=== PATIENT | male | born 1950 | race Caucasian/White ===

== ENCOUNTER → 2016-07-05 | Outpatient (CLI) | payer MEDICARE, BC ==
[2016-07-05 15:55] LABS: Calcium 8.3 mg/dL (8.4-10.2); Potassium 4.8 mmol/L (3.5-5.1); Total Bilirubin 0.5 mg/dL (0.2-1.3); Total Protein 8.2 g/dL (6.3-8.2)
[2016-07-05 16:07] LABS: Basophils # (A) 0.1 k/uL (0-0.2); Basophils % (A) 1 %; CH 32.3; CHCM 33.6; Eosinophils # (A) 0.2 k/uL (0-0.7); Eosinophils % (A) 3 %; HCT 37.1 % (39.0-53.0); HDW 2.69; HGB 12.4 gm/dL (13.0-17.5); Luc # (Auto) 0.08; Luc % (Auto) 1; Lymphocytes # (A) 1.2 k/uL (1.0-4.8); Lymphocytes % (A) 17 %; MCH 32.2 pg (25.0-35.0); MCHC 33.3 g/dL (31.0-37.0); MCV 96.6 fL (80.0-100.0); Mean Platelet Volume 7.9; Monocytes # (A) 0.4 k/uL (0-1.0); Monocytes % (A) 5 %; Neutrophils # (A) 5.4 k/uL (1.3-7.7); Neutrophils % (A) 73 %; RBC 3.84 m/uL (4.30-5.90); RDW 13.7 % (11.5-15.5); WBC 7.3 k/uL (3.8-10.6); WBC (Perox) 7.48
[2016-07-05 23:17] LABS: Hemoglobin A1C 6.6 % (4.2-6.1)
== END | disposition home or self-care (01) ==
LOC: LABPAT 15:06
PROVIDERS: ATTEND Surgery Vascular Surgery
DX: E11.621 Type 2 diabetes mellitus with foot ulcer (principal); L97.509 Non-pressure chronic ulcer of other part of unspecified foot with unspecified severity; M14.679 Charcot's joint, unspecified ankle and foot
CPT/HCPCS: 80053; 83036; 84134; 85025

== ENCOUNTER → 2017-12-09 | Outpatient (CLI) | payer MEDICARE, BC ==
[2017-12-09 12:48] LABS: HCT 37.7 % (39.0-53.0); HGB 12.5 gm/dL (13.0-17.5); MCHC 33.2 g/dL (31.0-37.0); MCV 96.4 fL (80.0-100.0); Mean Platelet Volume 7.5; Platelet Count 137 k/uL (150-450); RBC 3.91 m/uL (4.30-5.90); RDW 14.9 % (11.5-15.5); WBC 7.4 k/uL (3.8-10.6)
[2017-12-09 13:02] LABS: Albumin 4.1 g/dL (3.5-5.0); Calcium 8.7 mg/dL (8.4-10.2); Total Bilirubin 0.8 mg/dL (0.2-1.3); Total Protein 8.4 g/dL (6.3-8.2)
[2017-12-09 21:51] LABS: Hemoglobin A1C 6.1 % (4.0-6.0)
== END | disposition home or self-care (01) ==
LOC: LABWHC1 12:21
PROVIDERS: ATTEND Surgery Vascular Surgery
DX: E13.621 Other specified diabetes mellitus with foot ulcer (principal)
CPT/HCPCS: 36415; 80053; 83036; 84134; 85027

== ENCOUNTER 2019-10-04 23:19 | Inpatient (IN) | payer MEDICARE, BC ==
[2019-10-04] MEDS ORDERED: EPINEPHrine 10 ML SYRINGE (0.1 MG/ML) ONE (23:38)
[2019-10-04 23:45] LABS: Basophils # (A) 0.1 k/uL (0-0.2); Basophils % (A) 1 %; Eosinophils # (A) 0.3 k/uL (0-0.7); Eosinophils % (A) 2 %; HCT 45.8 % (39.0-53.0); HGB 13.6 gm/dL (13.0-17.5); Hypochromasia Marked; Lymphocytes # (A) 5.9 k/uL (1.0-4.8); Lymphocytes % (A) 41 %; MCH 32.4 pg (25.0-35.0); MCHC 29.7 g/dL (31.0-37.0); MCV 109.3 fL (80.0-100.0); Macrocytosis Marked; Monocytes # (A) 0.5 k/uL (0-1.0); Monocytes % (A) 3 %; Neutrophils # (A) 7.1 k/uL (1.3-7.7); Neutrophils % (A) 50 %; Platelet Count 111 k/uL (150-450); RDW 14.3 % (11.5-15.5); WBC 14.3 k/uL (3.8-10.6)
[2019-10-04 23:50] LABS: Prothrombin Time 10.5 sec (9.0-12.0)
[2019-10-04 23:54] LABS: Albumin 3.8 g/dL (3.5-5.0); Calcium 9.3 mg/dL (8.4-10.2); Magnesium 2.7 mg/dL (1.6-2.3); Potassium 4.3 mmol/L (3.5-5.1); Total Bilirubin 0.7 mg/dL (0.2-1.3); Total Protein 7.5 g/dL (6.3-8.2)
[2019-10-04] MEDS ORDERED: INSULIN REGULAR 100 UNIT/ML VIAL SQ STA (23:57)
[2019-10-05 00:06] LABS: Anisocytosis (M) Present; Polychromasia Present
--- NOTE | 2019-10-05 00:08 | XR ---
EXAMINATION TYPE: XR chest 1V confirm line [facility] DATE OF EXAM: 10/05/2019 COMPARISON: NONE HISTORY: Intubated TECHNIQUE: FINDINGS: Endotracheal tube is 12 mm from the deanna. There is pulmonary interstitial and alveolar ed nathanael. Heart appears enlarged. I see no definite pleural effusion. IMPRESSION: Pulmonary edema. Endotracheal tube is low and could BE pulled back 2 to 3 cm.
[2019-10-05 00:21] LABS: ABG Base Excess -8.1 mmol/L; ABG HCO3 21 mmol/L (21-25); ABG PCO2 63 mmHg (35-45); ABG PO2 248 mmHg (83-108); ABG TCO2 23 mmol/L (19-24); Allen Test Performed? Yes
[2019-10-05 00:39] LABS: ABG PH 7.13 (7.35-7.45)
[2019-10-05] MEDS ORDERED: ACETAMINOPHEN SUPPOSITORY 650 MG SUPP RECTAL PRN (00:46)
[2019-10-05] MEDS ORDERED: MORPHINE SULFATE 2 MG/ML SYRINGE IV PRN (00:46)
[2019-10-05] MEDS ORDERED: NALOXONE 0.4 MG/ML 1 ML VIAL IV PRN (00:46)
[2019-10-05] MEDS ORDERED: HEPARIN SODIUM,PORCINE 5,000 UNIT/ML 1 ML VIAL IV PRN (00:51)
[2019-10-05] MEDS ORDERED: HEPARIN SODIUM,PORCINE 5,000 UNIT/ML 1 ML VIAL IV ONE (00:51)
--- NOTE | 2019-10-05 00:54 | ED ---
CPR HPI - General Chief Complaint: Cardiac Arrest/CPR Stated Complaint: Cardiac Arrest Time Seen by Provider: 10/04/19 23:54 Source: EMS Mode of arrival: EMS Limitations: physical limitation (Intubated, unresponsive) - History of Present Illness Initial Comments: This patient is a 69-year-old man with history of end-stage renal disease on hemodialysis, he is brought by ambulance after he had collapsed at home. History from the patient's daughter reveals that the patient had been in his usual state of health, he had had his dialysis session today. The patient called a family member because he felt like he was going to vomit. He then collapsed to the floor. Family helped him from the bed, and when they placed him on the bed he became unresponsive. Family called EMS and probably around 6 minutes later EMS arrived and started ACLS protocol. They did achieve ROSC. MD Complaint: collapsed during rest -: minute(s) Place: home Bystander CPR Performed: No AED Applied by Bystander/Supervisor Vegetable Farming: No Initial Findings in the Field: unresponsive ROSC in the Field: Yes Associated Injuries: No Treatments Prior to Arrival: intubation, other airway device, epinephrine mgs # - Related Data Allergies Allergy/AdvReac Type Severity Reaction Status Date / Time Unable to Assess Allergy Verified 10/04/19 23:56 Review of Systems ROS Statement: Those systems with pertinent positive or pertinent negative responses have been documented in the HPI. ROS Other: All systems not noted in ROS Statement are negative. Limitations: ROS unobtainable due to patients medical condition (Unresponsive) General Exam Limitations: no limitations General appearance: obese, other (Patient unresponsive) Head exam: Present: atraumatic, normocephalic Pupils: Present: other (Pupils are midrange and nonresponsive) ENT exam: Present: other (There is a Nick tube secured in the oropharynx. Patient does have some blood surrounding the mouth no evidence of active bleeding) Neck exam: Present: normal inspection, other (No evidence of step-off or deformity). Absent: tenderness Respiratory exam: Present: rhonchi, other (No spontaneous inspiratory effort. Auscultation during bagging reveals rhonchi) Cardiovascular Exam: Present: bradycardia (Heart rate in the mid 40s on arrival). Absent: systolic murmur, diastolic murmur, rubs, gallop GI/Abdominal exam: Present: soft. Absent: distended, tenderness, mass Extremities exam: Present: other (Right leg above-knee amputation, stasis ulcer left manzano) Neurological exam: Present: other (GCS is 3, patient unresponsive.). Absent: reflexes normal Skin exam: Present: dry, mottled. Absent: rash Course Vital Signs 10/04/19 10/05/19 10/05/19 23:23 00:25 00:30 Pulse Rate 73 86 82 Respiratory 18 18 18 Rate Blood Pressure 139/85 121/67 114/68 O2 Sat by Pulse 100 100 Oximetry 10/05/19 10/05/19 10/05/19 00:40 00:50 01:00 Pulse Rate 89 80 74 Respiratory 18 18 18 Rate Blood Pressure 109/65 94/50 85/52 O2 Sat by Pulse 97 99 100 Oximetry 10/05/19 10/05/19 01:10 01:55 Pulse Rate 75 86 Respiratory 18 18 Rate Blood Pressure 72/56 125/64 O2 Sat by Pulse 99 98 Oximetry - Reevaluation(s) Reevaluation #1: 10/05/19 01:02 After receiving the patient's EKG, I did transmit this to cardiology and discussed the case with them and at that point the patient does not appear to be a candidate for the lab head. Procedures - [place] Protocol (Time Out) Nurse: Claudy Hernandez - Central Line Placement Right Femoral Consent Obtained: emergent situation Patient Placed on Monitor/Pulse Ox: Yes Prep: mask, gown, gloves Central Line Prep: Chlorhexidine scrub Local Anesthesia Used: Lidocaine 1% Central Line Lumen Inserted: triple Bloods Obtained for Lab: Yes Central Line Position: good blood return, all ports aspirated, flushed, capped, sutured in place with nylon Dressing Applied: Tegaderm Patient Tolerated Procedure: well, no complications - Intubation Laryngoscope: fiber optic video scope ET Tube Size: 8 ET Tube Uncuffed: No Tube Placement Confirmation: visualized tube passing through cords, equal breath sounds bilaterally, no breath sounds over epigastrium, confirmation by capnometry Patient Tolerated Procedure: no complications Medical Decision Making - Medical Decision Making This patient is a 69-year-old man brought by ambulance for what appears to be cardiopulmonary arrest at home. There was return of spontaneous circulation after ACLS protocol. History and physical performed. Orders entered. On receiving the 12-lead ECG I discussed case with cardiology, and at this point patient does not appear to be lab head candidate. Case discussed with foreclosure field inspector, including the initial ABG. Given that the patient was becoming a little hypotensive, central venous catheter placed, see the note, without complications, and order Levophed. I discussed the patient's critical condition and the extremely grave prognosis with patient's daughter. - Lab Data Result diagrams: 10/04/19 23:24 10/04/19 23:24 Lab Results 10/04/19 10/04/19 10/04/19 Range/Units 23:24 23:24 23:24 WBC 14.3 H (3.8-10.6) k/uL RBC 4.20 L (4.30-5.90) m/uL Hgb 13.6 (13.0-17.5) gm/dL Hct 45.8 (39.0-53.0) % MCV 109.3 H (80.0-100.0) fL MCH 32.4 (25.0-35.0) pg MCHC 29.7 L (31.0-37.0) g/dL RDW 14.3 (11.5-15.5) % Plt Count 111 L (150-450) k/uL Neutrophils % 50 % Lymphocytes % 41 % Monocytes % 3 % Eosinophils % 2 % Basophils % 1 % Neutrophils # 7.1 (1.3-7.7) k/uL Lymphocytes # 5.9 H (1.0-4.8) k/uL Monocytes # 0.5 (0-1.0) k/uL Eosinophils # 0.3 (0-0.7) k/uL Basophils # 0.1 (0-0.2) k/uL Manual Slide Review Performed Polychromasia Present Hypochromasia Marked Anisocytosis (manual) Present Macrocytosis Marked A PT 10.5 (9.0-12.0) sec INR 1.0 (<1.2) APTT 23.0 (22.0-30.0) sec Sample Site ABG pH (7.35-7.45) ABG pCO2 (35-45) mmHg ABG pO2 (83-108) mmHg ABG HCO3 (21-25) mmol/L ABG Total CO2 (19-24) mmol/L ABG O2 Saturation (94-97) % ABG Base Excess mmol/L Elvis Test FiO2 % Sodium 141 (137-145) mmol/L Potassium 4.3 (3.5-5.1) mmol/L Chloride 98 (98-107) mmol/L Carbon Dioxide 15 L (22-30) mmol/L Anion Gap 28 mmol/L BUN 28 H (9-20) mg/dL Creatinine 4.60 H (0.66-1.25) mg/dL Est GFR (CKD-EPI)AfAm 10 (>60 ml/min/1.73 sqM) Est GFR (CKD-EPI)NonAf 9 (>60 ml/min/1.73 sqM) Glucose 403 H (74-99) mg/dL Calcium 9.3 (8.4-10.2) mg/dL Magnesium 2.7 H (1.6-2.3) mg/dL Total Bilirubin 0.7 (0.2-1.3) mg/dL AST 29 (17-59) U/L ALT 22 (4-49) U/L Alkaline Phosphatase 146 H (38-126) U/L Troponin I (0.000-0.034) ng/mL Total Protein 7.5 (6.3-8.2) g/dL Albumin 3.8 (3.5-5.0) g/dL Coronavirus (PCR) (Not Detectd) 10/04/19 10/05/19 10/05/19 Range/Units 23:24 00:19 00:20 WBC (3.8-10.6) k/uL RBC (4.30-5.90) m/uL Hgb (13.0-17.5) gm/dL Hct (39.0-53.0) % MCV (80.0-100.0) fL MCH (25.0-35.0) pg MCHC (31.0-37.0) g/dL RDW (11.5-15.5) % Plt Count (150-450) k/uL Neutrophils % % Lymphocytes % % Monocytes % % Eosinophils % % Basophils % % Neutrophils # (1.3-7.7) k/uL Lymphocytes # (1.0-4.8) k/uL Monocytes # (0-1.0) k/uL Eosinophils # (0-0.7) k/uL Basophils # (0-0.2) k/uL Manual Slide Review Polychromasia Hypochromasia Anisocytosis (manual) Macrocytosis PT (9.0-12.0) sec INR (<1.2) APTT (22.0-30.0) sec Sample Site lbrac ABG pH 7.13 L* (7.35-7.45) ABG pCO2 63 H (35-45) mmHg ABG pO2 248 H (83-108) mmHg ABG HCO3 21 (21-25) mmol/L ABG Total CO2 23 (19-24) mmol/L ABG O2 Saturation 97.0 (94-97) % ABG Base Excess -8.1 mmol/L Elvis Test Yes FiO2 100 % Sodium (137-145) mmol/L Potassium (3.5-5.1) mmol/L Chloride (98-107) mmol/L Carbon Dioxide (22-30) mmol/L Anion Gap mmol/L BUN (9-20) mg/dL Creatinine (0.66-1.25) mg/dL Est GFR (CKD-EPI)AfAm (>60 ml/min/1.73 sqM) Est GFR (CKD-EPI)NonAf (>60 ml/min/1.73 sqM) Glucose (74-99) mg/dL Calcium (8.4-10.2) mg/dL Magnesium (1.6-2.3) mg/dL Total Bilirubin (0.2-1.3) mg/dL AST (17-59) U/L ALT (4-49) U/L Alkaline Phosphatase (38-126) U/L Troponin I 0.037 H* (0.000-0.034) ng/mL Total Protein (6.3-8.2) g/dL Albumin (3.5-5.0) g/dL Coronavirus (PCR) Not Detected (Not Detectd) - EKG Data -: EKG Interpreted by Me EKG shows normal: axis (Appears to be right superior axis deviation.), intervals (Prolonged QT interval.), ST-T waves (There is mild ST elevation in lead V1, depressions laterally and V2 through 6, concerning for possible ischemia.) Rate: normal (Rate 89 bpm) Interpretation: other (Rhythm appears to be atrial fibrillation with rate 89 b pm. ) Critical Care Time Critical Care Time: Yes (45 minutes) Disposition Clinical Impression: Cardiac arrest Disposition: ADMITTED IP TO THIS HOSP Condition: Critical Is patient prescribed a controlled substance at d/c from ED?: No
[2019-10-05] MEDS ORDERED: HEPARIN SOD,PORK IN 0.45% NACL 25,000 UNIT in 0.45% NACL 1 250ML.BAG IV SCH (01:00)
[2019-10-05] MEDS: SODIUM CHLORIDE 0.9% 1,000 ML IV SCH ×3 (01:12→20:29)
[2019-10-05] MEDS: NOREPINEPHRINE 32 MG in SODIUM CHLORIDE 0.9% 218 ML IV SCH (01:37)
[2019-10-05] MEDS ORDERED: PROPOFOL 1,000 MG in EMPTY BAG 1 BAG IV SCH (02:30)
[2019-10-05] MEDS ORDERED: SODIUM CHLORIDE 0.9% 1,000 ML IV ONE (03:22)
[2019-10-05 04:48] LABS: Basophils # (A) 0.1 k/uL (0-0.2); Basophils % (A) 0 %; Eosinophils # (A) 0.1 k/uL (0-0.7); Eosinophils % (A) 0 %; HCT 48.5 % (39.0-53.0); Hypochromasia Marked; Lymphocytes # (A) 1.2 k/uL (1.0-4.8); Lymphocytes % (A) 6 %; MCH 32.4 pg (25.0-35.0); MCHC 30.9 g/dL (31.0-37.0); MCV 104.8 fL (80.0-100.0); Macrocytosis Moderate; Mean Platelet Volume 9.3; Monocytes # (A) 1.1 k/uL (0-1.0); Monocytes % (A) 5 %; Neutrophils # (A) 19.1 k/uL (1.3-7.7); Neutrophils % (A) 88 %; Platelet Count 134 k/uL (150-450); RBC 4.62 m/uL (4.30-5.90); RDW 14.3 % (11.5-15.5); WBC 21.8 k/uL (3.8-10.6)
[2019-10-05 05:04] LABS: Calcium 9.5 mg/dL (8.4-10.2); Potassium 5.4 mmol/L (3.5-5.1)
[2019-10-05] MEDS ORDERED: INSULIN ASPART (NovoLOG) 100 UNIT/ML VIAL SQ SCH (06:00)
[2019-10-05 07:23] LABS: ABG Base Excess -4.5 mmol/L; ABG HCO3 21 mmol/L (21-25); ABG Oxygen Saturation 93.8 % (94-97); ABG PCO2 41 mmHg (35-45); ABG PH 7.33 (7.35-7.45); ABG PO2 96 mmHg (83-108); ABG TCO2 23 mmol/L (19-24); Allen Test Performed? Yes
[2019-10-05] MEDS ORDERED: ARTIFICIAL TEARS OINTMENT 3.5 GM TUBE BOTH EYES PRN (08:00)
[2019-10-05 08:04] LABS: Glucose,Whole Blood 343 mg/dL (75-99)
[2019-10-05 08:04] LABS: Glucose,Whole Blood 336 mg/dL (75-99)
[2019-10-05] MEDS ORDERED: PIPERACILLIN-TAZOBACTAM 3.375 GM in SODIUM CHLORIDE 0.9% 100 ML IVPB SCH (08:15)
[2019-10-05] MEDS ORDERED: VANCOMYCIN IV PER PHARMACY 1 EACH MISC MISCELLANE PRN (08:23)
[2019-10-05] MEDS ORDERED: INSULIN REGULAR BOLUS (FROM DRIP BAG) IV PRN (08:25)
[2019-10-05] MEDS ORDERED: FAMOTIDINE 20 MG/2 ML VIAL IV SCH (09:00)
[2019-10-05] MEDS ORDERED: VANCOMYCIN 2,000 MG in SODIUM CHLORIDE 0.9% 500 ML 500 ML IVPB ONE (09:00)
--- NOTE | 2019-10-05 09:31 | XR ---
EXAMINATION TYPE: XR chest 1V DATE OF EXAM: 10/05/2019 COMPARISON: 10/05/2019 HISTORY: Nasogastric tube placement TECHNIQUE: Single frontal view of the chest is obtained. FINDINGS: Nasogastric tube has been placed terminating off the distal [id number]. Endotracheal tu be appears similar in position terminating near the aortic arch approximately 4.5 cm in the deanna. S imilar-appearing bilateral pleural effusions and associated bibasilar airspace disease with moderate pulmonary vascular congestion and interstitial edema. Cardiomediastinal silhouette is enlarged. IMPRESSION: Enteric tube courses off of the distal [id number], therefore likely appropriately vinicio ingris although the distal tip is not visualized. Endotracheal tube is satisfactory and stable position. Redemonstration of sequela of fluid overload as stated on the prior earlier the same date.
[2019-10-05 09:41] LABS: Glucose,Whole Blood 313 mg/dL (75-99)
[2019-10-05] MEDS: INSULIN REGULAR 100 UNIT in SODIUM CHLORIDE 0.9% 100 ML IV SCH ×2 (09:42→20:27)
--- NOTE | 2019-10-05 09:43 | XR ---
EXAMINATION TYPE: XR chest 1V portable DATE OF EXAM: 10/05/2019 COMPARISON: 10/05/2019 HISTORY: Endotracheal tube placement. Ventilatory dependent respiratory failure. TECHNIQUE: Single frontal view of the chest is obtained. FINDINGS: Increasing small to moderate right pleural effusion and diffuse interstitial moderate pulm onary edema. Right mid and upper lung opacity are similar. Endotracheal tube remains in place approxi mately 4.6 cm from the deanna. Trace left pleural effusion is seen. Cardiomediastinal silhouette is e nlarged and rotated. Enteric tube has been removed. IMPRESSION: 1. Removal of the enteric tube. 2. Worsening small to moderate right pleural effusion and sequela of fluid overload with interstitial edema.
[2019-10-05] MEDS: CHLORHEXIDINE GLUCONATE 15 ML CUP MUCOUS MEM SCH ×2 (10:05→21:05)
[2019-10-05] MEDS: PIPERACILLIN-TAZOBACTAM 3.375 GM in SODIUM CHLORIDE 0.9% 100 ML IVPB SCH ×2 (10:06→21:05)
[2019-10-05 10:18] LABS: Glucose,Whole Blood 316 mg/dL (75-99)
[2019-10-05] MEDS ORDERED: ACETAMINOPHEN TAB 325 MG TAB PO PRN (10:24)
[2019-10-05 11:13] LABS: Glucose,Whole Blood 314 mg/dL (75-99)
--- NOTE | 2019-10-05 11:41 | P.HPIM ---
History of Present Illness 69-year-old male with end-stage renal disease on hemodialysis collapsed at home and patient was brought into ER after he was resuscitated for about 6 minutes patient had pulseless electrical activity. Patient was subsequently intubated in the ER and patient airway although was maintained during transportation. Patient doesn't have any fevers patient doesn't make much urine hemodialysis dependent. Patient chest x-ray did not show any pneumonic process but did show pulmonary edema. Patient has both hypercapnic and hypoxic respiratory failure. Patient has gag reflex that is SENT pupils are not reacting to light and neurology will evaluate the patient for anoxic brain injury. Patient has significant lactic acidosis with mildly elevated troponin and patient has a decubitus ulcer which can be infected. Review of Systems Unable to obtain Past Medical History Past Medical History: Diabetes Mellitus, Hyperlipidemia, Renal Disease, Vascular Disorder Additional Past Medical History / Comment(s): Seasonal allergies, peripheral ne uropathy, peripheral vascular disease, dialysis tuesday, tue, tuesday, wound R foot History of Any Multi-Drug Resistant Organisms: None Reported Date of last positivie culture/infection: 02/19/2014 MDRO Source:: Left Foot Past Surgical History: Orthopedic Surgery Additional Past Surgical History / Comment(s): Amputation 4th toe left foot, dialysis port to left chest removed, fistula to rt arm. Amputation great toe and 2nd toe rt foot. 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 He has 2 daughters are both diabetic. Medications and Allergies Home Medications Medication Instructions Recorded Confirmed Type Calcium Acetate [PhosLo] 2,001 mg PO AC-BID 06/18/14 10/05/19 History Insulin Detemir (Levemir) [Levemir] 50 unit SQ PC-SUPPER 06/18/14 10/05/19 History Midodrine [ProAmatine] 5 mg PO MOWEFR PRN 06/26/14 10/05/19 History Acetaminophen [Tylenol Arthritis] 650 mg PO Q8H PRN 10/05/19 10/05/19 History Albuterol Inhaler [Ventolin Hfa 2 puff INHALATION Q6H PRN 10/05/19 10/05/19 History Inhaler] Apixaban [Eliquis] 2.5 mg PO BID 10/05/19 10/05/19 History Furosemide [Lasix] 120 mg PO BID 10/05/19 10/05/19 History Lidocaine-Prilocaine Cream [Emla 1 applic TOPICAL MOWEFR PRN 10/05/19 10/05/19 History Cream 2.5%/2.5%] Pantoprazole [Protonix] 40 mg PO DAILY 10/05/19 10/05/19 History Simvastatin [Zocor] 20 mg PO HS 10/05/19 10/05/19 History Allergies Allergy/AdvReac Type Severity Reaction Status Date / Time No Known Allergies Allergy Verified 10/05/19 09:28 Physical Exam Vitals: Vital Signs Temp Pulse Pulse Pulse Resp BP BP 10/05/19 10:45 76/36 10/05/19 10:30 80/39 10/05/19 10:15 104/52 10/05/19 10:00 70 24 10/05/19 09:45 113/49 10/05/19 09:30 116/62 10/05/19 09:15 119/57 10/05/19 09:00 71 24 117/55 10/05/19 08:30 110/59 10/05/19 08:15 112/60 10/05/19 08:00 98.1 F 72 24 135/53 10/05/19 06:00 72 24 125/59 10/05/19 05:00 75 24 120/61 10/05/19 04:00 97.7 F 80 24 126/64 10/05/19 03:00 82 24 131/60 10/05/19 02:30 96.6 F L 76 22 132/61 10/05/19 02:00 97.6 F 78 24 107/48 10/05/19 01:55 86 18 125/64 10/05/19 01:10 75 18 72/56 10/05/19 01:00 74 18 85/52 10/05/19 00:50 80 18 94/50 10/05/19 00:40 89 18 109/65 10/05/19 00:30 82 18 114/68 10/05/19 00:25 86 18 121/67 10/05/19 00:15 98 18 109/58 10/05/19 00:00 96 18 116/66 10/04/19 23:23 73 18 139/85 Pulse Ox 10/05/19 10:45 10/05/19 10:30 10/05/19 10:15 10/05/19 10:00 95 10/05/19 09:45 10/05/19 09:30 10/05/19 09:15 10/05/19 09:00 95 10/05/19 08:30 10/05/19 08:15 10/05/19 08:00 96 10/05/19 06:00 96 10/05/19 05:00 96 10/05/19 04:00 96 10/05/19 03:00 96 10/05/19 02:30 10/05/19 02:00 96 10/05/19 01:55 98 10/05/19 01:10 99 10/05/19 01:00 100 10/05/19 00:50 99 10/05/19 00:40 97 10/05/19 00:30 100 10/05/19 00:25 100 10/05/19 00:15 100 10/05/19 00:00 100 10/04/19 23:23 Intake and Output 10/04/19 10/05/19 10/05/19 22:59 06:59 14:59 Intake Total 1650 600.834 Output Total 0 0 Balance 1650 600.834 Intake: IV 1650 485 NS 1L bolus 1000 Sodium Chloride 0.9% 1, 650 485 000 ml @ 75 mls/hr IV . [id number] [facility] Rx#:[id number] Intake, IV Titration 115.834 Amount Heparin Sod,Pork in 0.45% 71.819 NaCl 25,000 unit In 0.45 % NaCl 1 250ml.bag @ 7.11 UNITS/KG/HR 9.998 mls/hr IV .Q24H [facility] Rx#: [id number] Insulin Regular 100 unit 16.757 In Sodium Chloride 0.9% 100 ml @ Per Protocol IV .Q0M [facility] Rx#:[id number] Norepinephrine 32 mg In 27.258 Sodium Chloride 0.9% 218 ml @ 0.05 MCG/KG/MIN 3. 296 mls/hr IV .Q24H [facility] Rx#:[id number] Output: Urine 0 0 Other: Voiding Method Indwelling Catheter Indwelling Catheter Weight 140.614 kg PHYSICAL EXAMINATION: GENERAL: Obese intubated HEENT: Pupils are round and equally reacting to light. EOMI. No scleral icterus. No conjunctival pallor. Normocephalic, atraumatic. No pharyngeal erythema. No thyromegaly. CARDIOVASCULAR: S1 and S2 present. No murmurs, rubs, or gallops. PULMONARY: Chest is clear to auscultation, no wheezing or crackles. ABDOMEN: Soft, nontender, nondistended, normoactive bowel sounds. No palpable organomegaly. MUSCULOSKELETAL: No joint swelling or deformity. EXTREMITIES: No cyanosis, clubbing, or pedal edema. NEUROLOGICAL: Absent gag reflex, pupillary reflex corneal and conjunctival reflexes. SKIN: Decubitus ulcers please refer to nursing documentation for staging appears to be infected Results CBC & Chem 7: 10/05/19 04:19 10/05/19 04:19 Labs: Abnormal Lab Results - Last 24 Hours (Table) 10/04/19 10/04/19 10/04/19 Range/Units 23:24 23:24 23:24 WBC 14.3 H (3.8-10.6) k/uL RBC 4.20 L (4.30-5.90) m/uL MCV 109.3 H (80.0-100.0) fL MCHC 29.7 L (31.0-37.0) g/dL Plt Count 111 L (150-450) k/uL Neutrophils # (1.3-7.7) k/uL Lymphocytes # 5.9 H (1.0-4.8) k/uL Monocytes # (0-1.0) k/uL Macrocytosis Marked A APTT (22.0-30.0) sec ABG pH (7.35-7.45) ABG pCO2 (35-45) mmHg ABG pO2 (83-108) mmHg ABG O2 Saturation (94-97) % Potassium (3.5-5.1) mmol/L Carbon Dioxide 15 L (22-30) mmol/L BUN 28 H (9-20) mg/dL Creatinine 4.60 H (0.66-1.25) mg/dL Glucose 403 H (74-99) mg/dL POC Glucose (mg/dL) (75-99) mg/dL Plasma Lactic Acid Santiago (0.7-2.0) mmol/L Magnesium 2.7 H (1.6-2.3) mg/dL Alkaline Phosphatase 146 H (38-126) U/L Troponin I 0.037 H* (0.000-0.034) ng/mL 10/05/19 10/05/19 10/05/19 Range/Units 00:19 01:25 02:18 WBC (3.8-10.6) k/uL RBC (4.30-5.90) m/uL MCV (80.0-100.0) fL MCHC (31.0-37.0) g/dL Plt Count (150-450) k/uL Neutrophils # (1.3-7.7) k/uL Lymphocytes # (1.0-4.8) k/uL Monocytes # (0-1.0) k/uL Macrocytosis APTT (22.0-30.0) sec ABG pH 7.13 L* (7.35-7.45) ABG pCO2 63 H (35-45) mmHg ABG pO2 248 H (83-108) mmHg ABG O2 Saturation (94-97) % Potassium (3.5-5.1) mmol/L Carbon Dioxide (22-30) mmol/L BUN (9-20) mg/dL Creatinine (0.66-1.25) mg/dL Glucose (74-99) mg/dL POC Glucose (mg/dL) 336 H (75-99) mg/dL Plasma Lactic Acid Santiago 9.0 H* (0.7-2.0) mmol/L Magnesium (1.6-2.3) mg/dL Alkaline Phosphatase (38-126) U/L Troponin I (0.000-0.034) ng/mL 10/05/19 10/05/19 10/05/19 Range/Units 04:19 04:19 04:19 WBC 21.8 H (3.8-10.6) k/uL RBC (4.30-5.90) m/uL MCV 104.8 H (80.0-100.0) fL MCHC 30.9 L (31.0-37.0) g/dL Plt Count 134 L (150-450) k/uL Neutrophils # 19.1 H (1.3-7.7) k/uL Lymphocytes # (1.0-4.8) k/uL Monocytes # 1.1 H (0-1.0) k/uL Macrocytosis APTT 36.3 H (22.0-30.0) sec ABG pH (7.35-7.45) ABG pCO2 (35-45) mmHg ABG pO2 (83-108) mmHg ABG O2 Saturation (94-97) % Potassium 5.4 H (3.5-5.1) mmol/L Carbon Dioxide 20 L (22-30) mmol/L BUN 37 H (9-20) mg/dL Creatinine 4.89 H (0.66-1.25) mg/dL Glucose 343 H (74-99) mg/dL POC Glucose (mg/dL) (75-99) mg/dL Plasma Lactic Acid Santiago (0.7-2.0) mmol/L Magnesium (1.6-2.3) mg/dL Alkaline Phosphatase (38-126) U/L Troponin I (0.000-0.034) ng/mL 10/05/19 10/05/19 10/05/19 Range/Units 06:04 06:36 07:06 WBC (3.8-10.6) k/uL RBC (4.30-5.90) m/uL MCV (80.0-100.0) fL MCHC (31.0-37.0) g/dL Plt Count (150-450) k/uL Neutrophils # (1.3-7.7) k/uL Lymphocytes # (1.0-4.8) k/uL Monocytes # (0-1.0) k/uL Macrocytosis APTT (22.0-30.0) sec ABG pH 7.33 L (7.35-7.45) ABG pCO2 (35-45) mmHg ABG pO2 (83-108) mmHg ABG O2 Saturation 93.8 L (94-97) % Potassium (3.5-5.1) mmol/L Carbon Dioxide (22-30) mmol/L BUN (9-20) mg/dL Creatinine (0.66-1.25) mg/dL Glucose (74-99) mg/dL POC Glucose (mg/dL) 343 H (75-99) mg/dL Plasma Lactic Acid Santiago 6.9 H* (0.7-2.0) mmol/L Magnesium (1.6-2.3) mg/dL Alkaline Phosphatase (38-126) U/L Troponin I (0.000-0.034) ng/mL 10/05/19 10/05/19 10/05/19 Range/Units 09:40 09:54 10:16 WBC (3.8-10.6) k/uL RBC (4.30-5.90) m/uL MCV (80.0-100.0) fL MCHC (31.0-37.0) g/dL Plt Count (150-450) k/uL Neutrophils # (1.3-7.7) k/uL Lymphocytes # (1.0-4.8) k/uL Monocytes # (0-1.0) k/uL Macrocytosis APTT (22.0-30.0) sec ABG pH (7.35-7.45) ABG pCO2 (35-45) mmHg ABG pO2 (83-108) mmHg ABG O2 Saturation (94-97) % Potassium (3.5-5.1) mmol/L Carbon Dioxide (22-30) mmol/L BUN (9-20) mg/dL Creatinine (0.66-1.25) mg/dL Glucose (74-99) mg/dL POC Glucose (mg/dL) 313 H 316 H (75-99) mg/dL Plasma Lactic Acid Santiago 5.6 H* (0.7-2.0) mmol/L Magnesium (1.6-2.3) mg/dL Alkaline Phosphatase (38-126) U/L Troponin I (0.000-0.034) ng/mL 10/05/19 Range/Units 11:12 WBC (3.8-10.6) k/uL RBC (4.30-5.90) m/uL MCV (80.0-100.0) fL MCHC (31.0-37.0) g/dL Plt Count (150-450) k/uL Neutrophils # (1.3-7.7) k/uL Lymphocytes # (1.0-4.8) k/uL Monocytes # (0-1.0) k/uL Macrocytosis APTT (22.0-30.0) sec ABG pH (7.35-7.45) ABG pCO2 (35-45) mmHg ABG pO2 (83-108) mmHg ABG O2 Saturation (94-97) % Potassium (3.5-5.1) mmol/L Carbon Dioxide (22-30) mmol/L BUN (9-20) mg/dL Creatinine (0.66-1.25) mg/dL Glucose (74-99) mg/dL POC Glucose (mg/dL) 314 H (75-99) mg/dL Plasma Lactic Acid Santiago (0.7-2.0) mmol/L Magnesium (1.6-2.3) mg/dL Alkaline Phosphatase (38-126) U/L Troponin I (0.000-0.034) ng/mL Microbiology - Last 24 Hours (Table) 10/05/19 02:52 Sputum Culture - Preliminary Sputum Thrombosis Risk Factor Assmnt - Choose All That Apply Each Factor Represents 1 point: Obesity (BMI >25) Other Risk Factors: Yes Each Risk Factor Represents 2 Points: Age 61-74 years, Central venous access, Patient confined to bed Thrombosis Risk Factor Assessment Total Risk Factor Score: 7 Thrombosis Risk Factor Assessment Level: High Risk Assessment and Plan Plan: Acute the hypoxic and hypercapnic respiratory failure status post cardiac pulmonary arrest acute hypoxic respiratory failure may be related to pulmonary edema patient is Tuesday hemodialysis nephrology will evaluated the patient and decide on hemodialysis, hypercapnic respiratory failure may be related to COPD exacerbation unknown whether patient ever smoked. Can be related to cardiology pulmonary arrest, patient is presently ventilator dep endent -Sepsis and septic shock, patient is receiving IV fluids and is also on norepinephrine for maintenance of blood pressure wound cultures were obtained wound may be the source of infection no other sources clearly evident at this time patient is on broad-spectrum antibiotics and azithromycin and Zosyn and blood cultures will be obtained as well as infectious disease will evaluate the patient extended-leukocytosis due to assessment #2 -Possible significant anoxic brain injury neurology will evaluate the patient patient may need any imaging his prognosis is extremely poor patient Taniya being terminal wean and comfort care will wait for neurology recommendations regarding extent of his blood anoxic brain injury. -Cardio pulmonary arrest may be secondary to sepsis or pulmonary edema -End-stage renal disease hemodialysis dependent -Hyperkalemia secondary to renal failure -Type 2 diabetes mellitus uncontrolled blood sugars patient is on IV insulin drip at this time. I to lactic acidosis secondary to sepsis and cardio pulmonary arrest and decreased organ perfusion and multiorgan dysfunction -Troponin elevation probably secondary to cardio pulmonary arrest. Urology will evaluate the patient patient is having bleeding from the oral cavity because of which patient is not on anti-correlation patient usually takes Eliquis for atrial fibrillation -Hyperlipidemia Have intravascular disease -Diabetic peripheral neuropathy -Diabetic nephropathy -History of atrial fibrillation presently rate controlled
--- NOTE | 2019-10-05 11:42 | P.NPCON ---
History of Present Illness - Reason for Consult end stage renal disease - History of Present Illness Reason for consultation: End-stage renal disease History of present illness: Patient is a 47-year-old male seen in renal consultation for end-stage renal disease. He is maintained on hemodialysis on Tuesday schedule. Patient was found to be unresponsive at home. EMS was called. CPR was performed for about 20 minutes with response to circulation. However he again had a cardiac arrest and was coded for another 5 minutes or so in the ER. Patient's down time is estimated to be about 35-40 minutes. He is currently intubated and sedated. He is on Levophed. He is also receiving IV fluids. Chest x-ray suggestive of fluid overload. Patient tends to be chronically fluid overloaded and typically tolerates 4 L of ultrafiltration with each dialysis treatment. He is long-standing history of diabetes mellitus. No fever. Coronavirus testing was negative. Vital signs are stable. Currently on Levophed. General: The patient appeared well nourished and normally developed. HEENT: Intubated. LUNGS: Lungs are clear to auscultation and percussion. Breath sounds decreased. HEART: Rate and Rhythm are regular. First and second heart sounds normal. No murmurs, rubs or gallops. ABDOMEN: Soft. Obese. EXTREMITITES: Chronic changes noted. BKA noted. Past Medical History Past Medical History: Diabetes Mellitus, Hyperlipidemia, Renal Disease, Vascular Disorder Additional Past Medical History / Comment(s): Seasonal allergies, peripheral neuropathy, peripheral vascular disease, dialysis tuesday, tue, tuesday, wound R foot History of Any Multi-Drug Resistant Organisms: None Reported Date of last positivie culture/infection: 02/19/2014 MDRO Source:: Left Foot Past Surgical History: Orthopedic Surgery Additional Past Surgical History / Comment(s): Amputation 4th toe left foot, dialysis port to left chest removed, fistula to rt arm. Amputation great toe and 2nd toe rt foot. 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 He has 2 daughters are both diabetic. Medications and Allergies Home Medications Medication Instructions Recorded Confirmed Type Calcium Acetate [PhosLo] 2,001 mg PO AC-BID 06/18/14 10/05/19 History Insulin Detemir (Levemir) [Levemir] 50 unit SQ PC-SUPPER 06/18/14 10/05/19 History Midodrine [ProAmatine] 5 mg PO MOWEFR PRN 06/26/14 10/05/19 History Acetaminophen [Tylenol Arthritis] 650 mg PO Q8H PRN 10/05/19 10/05/19 History Albuterol Inhaler [Ventolin Hfa 2 puff INHALATION Q6H PRN 10/05/19 10/05/19 History Inhaler] Apixaban [Eliquis] 2.5 mg PO BID 10/05/19 10/05/19 History Furosemide [Lasix] 120 mg PO BID 10/05/19 10/05/19 History Lidocaine-Prilocaine Cream [Emla 1 applic TOPICAL MOWEFR PRN 10/05/19 10/05/19 History Cream 2.5%/2.5%] Pantoprazole [Protonix] 40 mg PO DAILY 10/05/19 10/05/19 History Simvastatin [Zocor] 20 mg PO HS 10/05/19 10/05/19 History Allergies Allergy/AdvReac Type Severity Reaction Status Date / Time No Known Allergies Allergy Verified 10/05/19 09:28 Physical Exam Vitals: Vital Signs Temp Pulse Pulse Pulse Resp BP BP 10/05/19 10:45 76/36 10/05/19 10:30 80/39 10/05/19 10:15 104/52 10/05/19 10:00 70 24 10/05/19 09:45 113/49 10/05/19 09:30 116/62 10/05/19 09:15 119/57 10/05/19 09:00 71 24 117/55 10/05/19 08:30 110/59 10/05/19 08:15 112/60 10/05/19 08:00 98.1 F 72 24 135/53 10/05/19 06:00 72 24 125/59 10/05/19 05:00 75 24 120/61 10/05/19 04:00 97.7 F 80 24 126/64 10/05/19 03:00 82 24 131/60 10/05/19 02:30 96.6 F L 76 22 132/61 10/05/19 02:00 97.6 F 78 24 107/48 10/05/19 01:55 86 18 125/64 10/05/19 01:10 75 18 72/56 10/05/19 01:00 74 18 85/52 10/05/19 00:50 80 18 94/50 10/05/19 00:40 89 18 109/65 10/05/19 00:30 82 18 114/68 10/05/19 00:25 86 18 121/67 10/05/19 00:15 98 18 109/58 10/05/19 00:00 96 18 116/66 10/04/19 23:23 73 18 139/85 Pulse Ox 10/05/19 10:45 10/05/19 10:30 10/05/19 10:15 10/05/19 10:00 95 10/05/19 09:45 10/05/19 09:30 10/05/19 09:15 10/05/19 09:00 95 10/05/19 08:30 10/05/19 08:15 10/05/19 08:00 96 10/05/19 06:00 96 10/05/19 05:00 96 10/05/19 04:00 96 10/05/19 03:00 96 10/05/19 02:30 10/05/19 02:00 96 10/05/19 01:55 98 10/05/19 01:10 99 10/05/19 01:00 100 10/05/19 00:50 99 10/05/19 00:40 97 10/05/19 00:30 100 10/05/19 00:25 100 10/05/19 00:15 100 10/05/19 00:00 100 10/04/19 23:23 Intake and Output 10/04/19 10/05/19 10/05/19 22:59 06:59 14:59 Intake Total 1650 600.834 Output Total 0 0 Balance 1650 600.834 Intake: IV 1650 485 NS 1L bolus 1000 Sodium Chloride 0.9% 1, 650 485 000 ml @ 75 mls/hr IV . [id number] [facility] Rx#:[id number] Intake, IV Titration 115.834 Amount Heparin Sod,Pork in 0.45% 71.819 NaCl 25,000 unit In 0.45 % NaCl 1 250ml.bag @ 7.11 UNITS/KG/HR 9.998 mls/hr IV .Q24H [facility] Rx#: [id number] Insulin Regular 100 unit 16.757 In Sodium Chloride 0.9% 100 ml @ Per Protocol IV .Q0M [facility] Rx#:[id number] Norepinephrine 32 mg In 27.258 Sodium Chloride 0.9% 218 ml @ 0.05 MCG/KG/MIN 3. 296 mls/hr IV .Q24H [facility] Rx#:[id number] Output: Urine 0 0 Other: Voiding Method Indwelling Catheter Indwelling Catheter Weight 140.614 kg Results - Lab Results Most recent lab results ABG pH 7.33 (7.35-7.45) L 10/05/19 07:06 ABG pCO2 41 mmHg (35-45) 10/05/19 07:06 ABG pO2 96 mmHg (83-108) 10/05/19 07:06 ABG HCO3 21 mmol/L (21-25) 10/05/19 07:06 ABG O2 Saturation 93.8 % (94-97) L 10/05/19 07:06 Calcium 9.5 mg/dL (8.4-10.2) 10/05/19 04:19 Magnesium 2.7 mg/dL (1.6-2.3) H 10/04/19 23:24 10/05/19 04:19 10/05/19 04:19 Assessment and Plan Plan: Assessment: 1. End-stage renal disease maintained on hemodialysis on Tuesday schedule. 2. Status post cardiac arrest with nearly 35-40 minutes downtime. 3. Concern for anoxic brain injury. 4. Volume overload. 5. Chronic kidney disease mineral bone disease maintained on PhosLo. 6. Insulin-dependent diabetes mellitus. 7. Hypotension maintained on Levophed. Plan: Hep-Lock IV fluids. Hemodialysis today with goal 2-3 L ultrafiltration. Will do SLED due to being on vasopressors. Wean vasopressors and FiO2. Overall prognosis guarded. Thank you for the consultation. I will continue to follow the patient with you during his hospital stay.
--- NOTE | 2019-10-05 11:57 | P.CRDCN ---
<Becky Pina - Last Filed: 10/05/19 11:48> History of Present Illness History of present illness: This is Becky Pina PA-C scribing on behalf of Dr. Espinosa The patient was interviewed and examined by Dr. Espinosa ER note reviewed HPI Patient is a 69-year-old male with history of end-stage renal disease on dialysis, diabetes, PAD who presented to the emergency department after a cardiac arrest. Carding to the emergency department as well, he had his dialysis session and then called a family member over because he was nauseated. He then collapsed on the floor and became unresponsive. The family called EMS. ACLS was started but there was no shockable rhythm, but ROSC was acheived. Upon arrival to the emergency department the patient was intubated. EKG showed atrial fibrillation with ST depressions in the lateral leads. Chest x-ray showing pulmonary edema. He has been admitted to the ICU. ROS: Unable to obtain EXAMINATION: Patient is afebrile, pulse in the 70s, respirations 24, blood pressure 76/36, oxygen saturation 95% on mechanical ventilation Dr. Espinosa examined the patient in the ICU Patient sedated and intubated Air entry equal bilaterally Heart sounds are soft REVIEW OF LABS, ECG & MEDICAL DATA WBC 21.8, hemoglobin 15.0, platelets 134, potassium 5.4, BUN 37, creatinine 4.89 Lactic acid 5.6 Troponins 0.037 Coronavirus negative IMPRESSION / ASSESSMENT: Status post cardiopulmonary arrest, patient did not have shockable rhythm Respiratory failure requiring mechanical ventilation Hypotensive requiring pressors ESRD on dialysis History of PAD Diabetes Hyperkalemia Atrial fibrillation, rate controlled Minimal troponin leak despite prolonged down time PLAN: Waiting for neurologic recovery before proceeding with cardiac workup Past Medical History Past Medical History: Diabetes Mellitus, Hyperlipidemia, Renal Disease, Vascular Disorder Additional Past Medical History / Comment(s): Seasonal allergies, peripheral neuropathy, peripheral vascular disease, dialysis tuesday, tue, tuesday, wound R foot History of Any Multi-Drug Resistant Organisms: None Reported Date of last positivie culture/infection: 02/19/2014 MDRO Source:: Left Foot Past Surgical History: Orthopedic Surgery Additional Past Surgical History / Comment(s): Amputation 4th toe left foot, beatriz lysis port to left chest removed, fistula to rt arm. Amputation great toe and 2nd toe rt foot. 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 He has 2 daughters are both diabetic. Medications and Allergies Home Medications Medication Instructions Recorded Confirmed Type Calcium Acetate [PhosLo] 2,001 mg PO AC-BID 06/18/14 10/05/19 History Insulin Detemir (Levemir) [Levemir] 50 unit SQ PC-SUPPER 06/18/14 10/05/19 History Midodrine [ProAmatine] 5 mg PO MOWEFR PRN 06/26/14 10/05/19 History Acetaminophen [Tylenol Arthritis] 650 mg PO Q8H PRN 10/05/19 10/05/19 History Albuterol Inhaler [Ventolin Hfa 2 puff INHALATION Q6H PRN 10/05/19 10/05/19 History Inhaler] Apixaban [Eliquis] 2.5 mg PO BID 10/05/19 10/05/19 History Furosemide [Lasix] 120 mg PO BID 10/05/19 10/05/19 History Lidocaine-Prilocaine Cream [Emla 1 applic TOPICAL MOWEFR PRN 10/05/19 10/05/19 History Cream 2.5%/2.5%] Pantoprazole [Protonix] 40 mg PO DAILY 10/05/19 10/05/19 History Simvastatin [Zocor] 20 mg PO HS 10/05/19 10/05/19 History Allergies Allergy/AdvReac Type Severity Reaction Status Date / Time No Known Allergies Allergy Verified 10/05/19 09:28 Physical Exam Vitals: Vital Signs Temp Pulse Pulse Pulse Resp BP BP 10/05/19 10:45 76/36 10/05/19 10:30 80/39 10/05/19 10:15 104/52 10/05/19 10:00 70 24 10/05/19 09:45 113/49 10/05/19 09:30 116/62 10/05/19 09:15 119/57 10/05/19 09:00 71 24 117/55 10/05/19 08:30 110/59 05 08:15 112/60 10/05/19 08:00 98.1 F 72 24 135/53 05 06:00 72 24 125/59 10/05/19 05:00 75 24 120/61 0520 04:00 97.7 F 80 24 126/64 10/05/19 03:00 82 24 131/60 10/05/19 02:30 96.6 F L 76 22 132/61 05 02:00 97.6 F 78 24 107/48 10/05/19 01:55 86 18 125/64 10/05/19 01:10 75 18 72/56 10/05/19 01:00 74 18 85/52 10/05/19 00:50 80 18 94/50 10/05/19 00:40 89 18 109/65 10/05/19 00:30 82 18 114/68 10/05/19 00:25 86 18 121/67 10/05/19 00:15 98 18 109/58 10/05/19 00:00 96 18 116/66 10/04/19 23:23 73 18 139/85 Pulse Ox 10/05/19 10:45 10/05/19 10:30 10/05/19 10:15 10/05/19 10:00 95 10/05/19 09:45 10/05/19 09:30 10/05/19 09:15 10/05/19 09:00 95 10/05/19 08:30 10/05/19 08:15 10/05/19 08:00 96 10/05/19 06:00 96 10/05/19 05:00 96 10/05/19 04:00 96 10/05/19 03:00 96 10/05/19 02:30 10/05/19 02:00 96 10/05/19 01:55 98 10/05/19 01:10 99 10/05/19 01:00 100 10/05/19 00:50 99 10/05/19 00:40 97 10/05/19 00:30 100 10/05/19 00:25 100 10/05/19 00:15 100 10/05/19 00:00 100 10/04/19 23:23 Intake and Output 10/04/19 10/05/19 10/05/19 22:59 06:59 14:59 Intake Total 1650 600.834 Output Total 0 0 Balance 1650 600.834 Intake: IV 1650 485 NS 1L bolus 1000 Sodium Chloride 0.9% 1, 650 485 000 ml @ 75 mls/hr IV . [id number] [facility] Rx#:[id number] Intake, IV Titration 115.834 Amount Heparin Sod,Pork in 0.45% 71.819 NaCl 25,000 unit In 0.45 % NaCl 1 250ml.bag @ 7.11 UNITS/KG/HR 9.998 mls/hr IV .Q24H [facility] Rx#: [id number] Insulin Regular 100 unit 16.757 In Sodium Chloride 0.9% 100 ml @ Per Protocol IV .Q0M [facility] Rx#:[id number] Norepinephrine 32 mg In 27.258 Sodium Chloride 0.9% 218 ml @ 0.05 MCG/KG/MIN 3. 296 mls/hr IV .Q24H [facility] Rx#:[id number] Output: Urine 0 0 Other: Voiding Method Indwelling Catheter Indwelling Catheter Weight 140.614 kg Results 10/05/19 04:19 10/05/19 04:19 Cardiac Enzymes 10/04/19 10/04/19 Range/Units 23:24 23:24 AST 29 (17-59) U/L Troponin I 0.037 H* (0.000-0.034) ng/mL Coagulation 10/04/19 10/05/19 Range/Units 23:24 04:19 PT 10.5 (9.0-12.0) sec APTT 23.0 36.3 H (22.0-30.0) sec CBC 10/04/19 10/05/19 Range/Units 23:24 04:19 WBC 14.3 H 21.8 H (3.8-10.6) k/uL RBC 4.20 L 4.62 (4.30-5.90) m/uL Hgb 13.6 15.0 (13.0-17.5) gm/dL Hct 45.8 48.5 (39.0-53.0) % Plt Count 111 L 134 L (150-450) k/uL Comprehensive Metabolic Panel 10/04/19 10/05/19 Range/Units 23:24 04:19 Sodium 141 144 (137-145) mmol/L Potassium 4.3 5.4 H (3.5-5.1) mmol/L Chloride 98 100 (98-107) mmol/L Carbon Dioxide 15 L 20 L (22-30) mmol/L BUN 28 H 37 H (9-20) mg/dL Creatinine 4.60 H 4.89 H (0.66-1.25) mg/dL Glucose 403 H 343 H (74-99) mg/dL Calcium 9.3 9.5 (8.4-10.2) mg/dL AST 29 (17-59) U/L ALT 22 (4-49) U/L Alkaline Phosphatase 146 H (38-126) U/L Total Protein 7.5 (6.3-8.2) g/dL Albumin 3.8 (3.5-5.0) g/dL Current Medications Generic Name Dose Route Start Last Admin Trade Name Freq PRN Reason Stop Dose Admin Acetaminophen 650 mg 10/05/19 00:46 Tylenol Suppository RECTAL Q4HR PRN Fever And/ Or Mild Pain Acetaminophen 650 mg 10/05/19 10:24 Tylenol Tab PO Q8H PRN Pain Atorvastatin Calcium 10 mg 10/05/19 21:00 Lipitor PO HS [facility] Calcium Acetate 2,001 mg 10/05/19 17:30 Phoslo PO AC-BID [facility] Chlorhexidine Gluconate 15 ml 10/05/19 09:00 10/05/19 10:05 Peridex MUCOUS MEM 15 ml BID [facility] Administration Famotidine 20 mg 10/06/19 09:00 Pepcid IV DAILY [facility] Sodium Chloride 1,000 mls @ 75 mls/hr 10/05/19 01:00 10/05/19 10:02 Saline 0.9% IV 130 mls/hr .[id number] [facility] Administration Norepinephrine Bitartrate 32 250 mls @ 3.296 mls/hr 10/05/19 01:30 10/05/19 10:54 mg/ Sodium Chloride IV 0.06 mcg/kg/min .Q24H [facility] 3.955 mls/hr Titration Protocol 0.05 MCG/KG/MIN Propofol 1,000 mg/ IV Solution 100 mls @ 0 mls/hr 10/05/19 02:30 IV .Q0M [facility] Protocol Titrate Piperacillin Sod/Tazobactam 100 mls @ 25 mls/hr 10/05/19 09:00 10/05/19 10:06 Sod 3.375 gm/ Sodium Chloride IVPB 25 mls/hr Q12HR [facility] Administration Insulin Human Regular 100 unit 101 mls @ 0 mls/hr 10/05/19 08:30 10/05/19 11:13 / Sodium Chloride IV 13 units/hr .Q0M [facility] 13.13 mls/hr Titration Protocol Per Protocol Vancomycin HCl 2,000 mg/ 500 mls @ 167 mls/hr 10/05/19 09:00 10/05/19 09:38 Sodium Chloride IVPB 10/05/19 11:59 167 mls/hr ONCE ONE Administration Vancomycin HCl 2,000 mg/ 500 mls @ 167 mls/hr 10/06/19 09:00 Sodium Chloride IVPB 10/06/19 11:59 ONCE ONE Insulin Human Regular 14.1 unit 10/05/19 08:25 Humulin R Bolus From Bag 0.1 unit/kg (14.1 unit) 11/04/19 08:26 IV ONCE PRN Blood Sugar - High Miscellaneous Information 1 each 10/05/19 08:23 Pharmacy To Dose Iv Vancomycin MISCELLANE DIRECTED PRN Per Protocol Protocol Morphine Sulfate 2 mg 10/05/19 00:46 Morphine Sulfate (Inj) IV Q2HR PRN Pain Scale 4 to 5 Multi-Ingred Cream/Lotion/Oil/Oint 1 applic 10/05/19 08:00 Lubrifresh Pm Ointment BOTH EYES Q4HR PRN Dry Eye(s) Naloxone HCl 0.2 mg 10/05/19 00:46 Narcan IV Q2M PRN Opioid Reversal Pantoprazole Sodium 40 mg 10/06/19 07:30 Protonix PO AC-BRKFST [facility] Intake and Output 10/04/19 10/05/19 10/05/19 22:59 06:59 14:59 Intake Total 1650 600.834 Output Total 0 0 Balance 1650 600.834 Intake: IV 1650 485 NS 1L bolus 1000 Sodium Chloride 0.9% 1, 650 485 000 ml @ 75 mls/hr IV . [id number] [facility] Rx#:[id number] Intake, IV Titration 115.834 Amount Heparin Sod,Pork in 0.45% 71.819 NaCl 25,000 unit In 0.45 % NaCl 1 250ml.bag @ 7.11 UNITS/KG/HR 9.998 mls/hr IV .Q24H [facility] Rx#: [id number] Insulin Regular 100 unit 16.757 In Sodium Chloride 0.9% 100 ml @ Per Protocol IV .Q0M [facility] Rx#:[id number] Norepinephrine 32 mg In 27.258 Sodium Chloride 0.9% 218 ml @ 0.05 MCG/KG/MIN 3. 296 mls/hr IV .Q24H [facility] Rx#:[id number] Output: Urine 0 0 Other: Voiding Method Indwelling Catheter Indwelling Catheter Weight 140.614 kg 10/05/19 04:19 10/05/19 04:19 <Mika Espinosa - Last Filed: 10/05/19 11:57> History of Present Illness History of present illness: Continue ICU management and monitoring Physical Exam Vitals: Vital Signs Temp Pulse Pulse Pulse Resp BP BP 10/05/19 10:45 76/36 10/05/19 10:30 80/39 10/05/19 10:15 104/52 10/05/19 10:00 70 24 10/05/19 09:45 113/49 10/05/19 09:30 116/62 10/05/19 09:15 119/57 10/05/19 09:00 71 24 117/55 10/05/19 08:30 110/59 10/05/19 08:15 112/60 10/05/19 08:00 98.1 F 72 24 135/53 10/05/19 06:00 72 24 125/59 10/05/19 05:00 75 24 120/61 10/05/19 04:00 97.7 F 80 24 126/64 10/05/19 03:00 82 24 131/60 10/05/19 02:30 96.6 F L 76 22 132/61 10/05/19 02:00 97.6 F 78 24 107/48 10/05/19 01:55 86 18 125/64 10/05/19 01:10 75 18 72/56 10/05/19 01:00 74 18 85/52 10/05/19 00:50 80 18 94/50 10/05/19 00:40 89 18 109/65 10/05/19 00:30 82 18 114/68 10/05/19 00:25 86 18 121/67 10/05/19 00:15 98 18 109/58 10/05/19 00:00 96 18 116/66 10/04/19 23:23 73 18 139/85 Pulse Ox 10/05/19 10:45 10/05/19 10:30 10/05/19 10:15 10/05/19 10:00 95 10/05/19 09:45 10/05/19 09:30 10/05/19 09:15 10/05/19 09:00 95 10/05/19 08:30 10/05/19 08:15 10/05/19 08:00 96 10/05/19 06:00 96 10/05/19 05:00 96 10/05/19 04:00 96 10/05/19 03:00 96 10/05/19 02:30 10/05/19 02:00 96 10/05/19 01:55 98 10/05/19 01:10 99 10/05/19 01:00 100 10/05/19 00:50 99 10/05/19 00:40 97 10/05/19 00:30 100 10/05/19 00:25 100 10/05/19 00:15 100 10/05/19 00:00 100 10/04/19 23:23 Intake and Output 10/04/19 10/05/19 10/05/19 22:59 06:59 14:59 Intake Total 1650 600.834 Output Total 0 0 Balance 1650 600.834 Intake: IV 1650 485 NS 1L bolus 1000 Sodium Chloride 0.9% 1, 650 485 000 ml @ 75 mls/hr IV . [id number] [facility] Rx#:[id number] Intake, IV Titration 115.834 Amount Heparin Sod,Pork in 0.45% 71.819 NaCl 25,000 unit In 0.45 % NaCl 1 250ml.bag @ 7.11 UNITS/KG/HR 9.998 mls/hr IV .Q24H [facility] Rx#: [id number] Insulin Regular 100 unit 16.757 In Sodium Chloride 0.9% 100 ml @ Per Protocol IV .Q0M [facility] Rx#:[id number] Norepinephrine 32 mg In 27.258 Sodium Chloride 0.9% 218 ml @ 0.05 MCG/KG/MIN 3. 296 mls/hr IV .Q24H [facility] Rx#:[id number] Output: Urine 0 0 Other: Voiding Method Indwelling Catheter Indwelling Catheter Weight 140.614 kg Results 10/05/19 04:19 10/05/19 04:19 Cardiac Enzymes 10/04/19 10/04/19 Range/Units 23:24 23:24 AST 29 (17-59) U/L Troponin I 0.037 H* (0.000-0.034) ng/mL Coagulation 10/04/19 10/05/19 Range/Units 23:24 04:19 PT 10.5 (9.0-12.0) sec APTT 23.0 36.3 H (22.0-30.0) sec CBC 10/04/19 10/05/19 Range/Units 23:24 04:19 WBC 14.3 H 21.8 H (3.8-10.6) k/uL RBC 4.20 L 4.62 (4.30-5.90) m/uL Hgb 13.6 15.0 (13.0-17.5) gm/dL Hct 45.8 48.5 (39.0-53.0) % Plt Count 111 L 134 L (150-450) k/uL Comprehensive Metabolic Panel 10/04/19 10/05/19 Range/Units 23:24 04:19 Sodium 141 144 (137-145) mmol/L Potassium 4.3 5.4 H (3.5-5.1) mmol/L Chloride 98 100 (98-107) mmol/L Carbon Dioxide 15 L 20 L (22-30) mmol/L BUN 28 H 37 H (9-20) mg/dL Creatinine 4.60 H 4.89 H (0.66-1.25) mg/dL Glucose 403 H 343 H (74-99) mg/dL Calcium 9.3 9.5 (8.4-10.2) mg/dL AST 29 (17-59) U/L ALT 22 (4-49) U/L Alkaline Phosphatase 146 H (38-126) U/L Total Protein 7.5 (6.3-8.2) g/dL Albumin 3.8 (3.5-5.0) g/dL Current Medications Generic Name Dose Route Start Last Admin Trade Name Freq PRN Reason Stop Dose Admin Acetaminophen 650 mg 10/05/19 00:46 Tylenol Suppository RECTAL Q4HR PRN Fever And/ Or Mild Pain Acetaminophen 650 mg 10/05/19 10:24 Tylenol Tab PO Q8H PRN Pain Atorvastatin Calcium 10 mg 10/05/19 21:00 Lipitor PO HS [facility] Calcium Acetate 2,001 mg 10/05/19 17:30 Phoslo PO AC-BID [facility] Chlorhexidine Gluconate 15 ml 10/05/19 09:00 10/05/19 10:05 Peridex MUCOUS MEM 15 ml BID [facility] Administration Famotidine 20 mg 10/06/19 09:00 Pepcid IV DAILY [facility] Sodium Chloride 1,000 mls @ 75 mls/hr 10/05/19 01:00 10/05/19 10:02 Saline 0.9% IV 130 mls/hr .[id number] [facility] Administration Norepinephrine Bitartrate 32 250 mls @ 3.296 mls/hr 10/05/19 01:30 10/05/19 10:54 mg/ Sodium Chloride IV 0.06 mcg/kg/min .Q24H [facility] 3.955 mls/hr Titration Protocol 0.05 MCG/KG/MIN Propofol 1,000 mg/ IV Solution 100 mls @ 0 mls/hr 10/05/19 02:30 IV .Q0M [facility] Protocol Titrate Piperacillin Sod/Tazobactam 100 mls @ 25 mls/hr 10/05/19 09:00 10/05/19 10:06 Sod 3.375 gm/ Sodium Chloride IVPB 25 mls/hr Q12HR [facility] Administration Insulin Human Regular 100 unit 101 mls @ 0 mls/hr 10/05/19 08:30 10/05/19 11:13 / Sodium Chloride IV 13 units/hr .Q0M [facility] 13.13 mls/hr Titration Protocol Per Protocol Vancomycin HCl 2,000 mg/ 500 mls @ 167 mls/hr 10/05/19 09:00 10/05/19 09:38 Sodium Chloride IVPB 10/05/19 11:59 167 mls/hr ONCE ONE Administration Vancomycin HCl 2,000 mg/ 500 mls @ 167 mls/hr 10/06/19 09:00 Sodium Chloride IVPB 10/06/19 11:59 ONCE ONE Insulin Human Regular 14.1 unit 10/05/19 08:25 Humulin R Bolus From Bag 0.1 unit/kg (14.1 unit) 11/04/19 08:26 IV ONCE PRN Blood Sugar - High Miscellaneous Information 1 each 10/05/19 08:23 Pharmacy To Dose Iv Vancomycin MISCELLANE DIRECTED PRN Per Protocol Protocol Morphine Sulfate 2 mg 10/05/19 00:46 Morphine Sulfate (Inj) IV Q2HR PRN Pain Scale 4 to 5 Multi-Ingred Cream/Lotion/Oil/Oint 1 applic 10/05/19 08:00 Lubrifresh Pm Ointment BOTH EYES Q4HR PRN Dry Eye(s) Naloxone HCl 0.2 mg 10/05/19 00:46 Narcan IV Q2M PRN Opioid Reversal Pantoprazole Sodium 40 mg 10/06/19 07:30 Protonix PO AC-BRKFST [facility] Intake and Output 10/04/19 10/05/19 10/05/19 22:59 06:59 14:59 Intake Total 1650 600.834 Output Total 0 0 Balance 1650 600.834 Intake: IV 1650 485 NS 1L bolus 1000 Sodium Chloride 0.9% 1, 650 485 000 ml @ 75 mls/hr IV . [id number] [facility] Rx#:[id number] Intake, IV Titration 115.834 Amount Heparin Sod,Pork in 0.45% 71.819 NaCl 25,000 unit In 0.45 % NaCl 1 250ml.bag @ 7.11 UNITS/KG/HR 9.998 mls/hr IV .Q24H [facility] Rx#: [id number] Insulin Regular 100 unit 16.757 In Sodium Chloride 0.9% 100 ml @ Per Protocol IV .Q0M [facility] Rx#:[id number] Norepinephrine 32 mg In 27.258 Sodium Chloride 0.9% 218 ml @ 0.05 MCG/KG/MIN 3. 296 mls/hr IV .Q24H [facility] Rx#:[id number] Output: Urine 0 0 Other: Voiding Method Indwelling Catheter Indwelling Catheter Weight 140.614 kg 10/05/19 04:19 10/05/19 04:19
[2019-10-05 12:13] LABS: Glucose,Whole Blood 273 mg/dL (75-99)
--- NOTE | 2019-10-05 12:53 | P.CNPUL ---
History of Present Illness Consult date: 10/05/19 Requesting physician: Joe Freeman Reason for consult: other (Cardiac arrest) Chief complaint: Cardiac arrest History of present illness: This is a 69-year-old white male with history of end-stage renal disease, on hemodialysis. Patient is also known to have history of diabetes, peripheral vessel occlusive disease and previous right below-knee amputation. Patient had a sudden witnessed arrest at home yesterday. CPR was started by family members. EMS arrived to the scene within 10 minutes. Patient was apparently unresponsive, CPR was continued by EMS. Did not have initially shockable rhythm Patient was brought into the ER and CPR was in progress. Apparently the down time all in all was about 20 minutes. Patient was coded according to the ACLS protocol in the ER, and he was intubated by the ER physician. Patient developed some trauma from endotracheal intubation, and he developed some bleeding around the area of the endotracheal tube. Hence he was initially on heparin because of the bleeding around the endotracheal tube, heparin was discontinued and presently on hold. Patient is now in the ICU, he is mechanically ventilated. He is on assist control rate of 24 tidal volume is 500 FiO2 is 60% and I cut it down to 50%. He is also on a PEEP of 5. ABG this morning showed a pO2 of 96 pCO2 of 41 pH of 7.33. Patient is unresponsive to any stimuli. 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 Chest x-ray showed evidence of fluid overload, interstitial edema, and small to moderate right-sided pleural effusion. Patient was already seen by nephrology, and the plan is to hemodialyze the patient/ultrafiltrate the patient and the goal is to remove 2-3 L of fluids. Patient was also seen by cardiology. Home and based on his overall clinical status, no plans to perform any cardiac catheterization at this point. Patient is also here to be seen by neurology for evaluation of possible anoxic brain injury. In the meantime I have recommended antibiotics in the form of cefepime and vancomycin, patient has evidence of deep ulcer in the left foot/plantar aspect. And has been doctoring at the wound care center. I have also recommended starting the patient Zosyn and vancomycin empirically. Lactic acid on presentation was high at 6.9. Fluids were given initially, and repeat lactic acid is pending. Review of Systems ROS unobtainable: due to endotracheal tube Past Medical History Past Medical History: Diabetes Mellitus, Hyperlipidemia, Renal Disease, Vascular Disorder Additional Past Medical History / Comment(s): Seasonal allergies, peripheral neuropathy, peripheral vascular disease, dialysis tuesday, tue, tuesday, wound R foot History of Any Multi-Drug Resistant Organisms: None Reported Date of last positivie culture/infection: 02/19/2014 MDRO Source:: Left Foot Past Surgical History: Orthopedic Surgery Additional Past Surgical History / Comment(s): Amputation 4th toe left foot, dialysis port to left chest removed, fistula to rt arm. Amputation great toe and 2nd toe rt foot. Right BKA October 18, 2017 Past Anesthesia/Blood Transfusion Reactions: No Reported Reaction Past Psychological History: No Psychological Hx Reported Smoking Status: Unknown if ever smoked - Past Family History Mother Family Medical History: Diabetes Mellitus, Myocardial Infarction ([place]) Additional Family Medical History / Comment(s): mother at age 50, hx cardiac arrhythmia Father Family Medical History: Diabetes Mellitus Additional Family Medical History / Comment(s): His father has history of [id number] amputation bilaterally. He has 2 daughters are both diabetic. Medications and Allergies Home Medications Medication Instructions Recorded Confirmed Type Calcium Acetate [PhosLo] 2,001 mg PO AC-BID 06/18/14 10/05/19 History Insulin Detemir (Levemir) [Levemir] 50 unit SQ PC-SUPPER 06/18/14 10/05/19 History Midodrine [ProAmatine] 5 mg PO MOWEFR PRN 06/26/14 10/05/19 History Acetaminophen [Tylenol Arthritis] 650 mg PO Q8H PRN 10/05/19 10/05/19 History Albuterol Inhaler [Ventolin Hfa 2 puff INHALATION Q6H PRN 10/05/19 10/05/19 History Inhaler] Apixaban [Eliquis] 2.5 mg PO BID 10/05/19 10/05/19 History Furosemide [Lasix] 120 mg PO BID 10/05/19 10/05/19 History Lidocaine-Prilocaine Cream [Emla 1 applic TOPICAL MOWEFR PRN 10/05/19 10/05/19 History Cream 2.5%/2.5%] Pantoprazole [Protonix] 40 mg PO DAILY 10/05/19 10/05/19 History Simvastatin [Zocor] 20 mg PO HS 10/05/19 10/05/19 History Allergies Allergy/AdvReac Type Severity Reaction Status Date / Time No Known Allergies Allergy Verified 10/05/19 09:28 Physical Exam Vitals: Vital Signs Temp Pulse Pulse Pulse Resp BP BP 10/05/19 12:00 98.1 F 75 24 122/62 10/05/19 11:45 122/62 10/05/19 11:30 123/65 10/05/19 11:15 129/56 10/05/19 11:00 134/71 10/05/19 10:45 76/36 10/05/19 10:30 80/39 10/05/19 10:15 104/52 10/05/19 10:00 70 24 10/05/19 09:45 113/49 10/05/19 09:30 116/62 10/05/19 09:15 119/57 10/05/19 09:00 71 24 117/55 10/05/19 08:30 110/59 10/05/19 08:15 112/60 10/05/19 08:00 98.1 F 72 24 135/53 10/05/19 06:00 72 24 125/59 10/05/19 05:00 75 24 120/61 10/05/19 04:00 97.7 F 80 24 126/64 10/05/19 03:00 82 24 131/60 10/05/19 02:30 96.6 F L 76 22 132/61 10/05/19 02:00 97.6 F 78 24 107/48 10/05/19 01:55 86 18 125/64 10/05/19 01:10 75 18 72/56 10/05/19 01:00 74 18 85/52 10/05/19 00:50 80 18 94/50 10/05/19 00:40 89 18 109/65 10/05/19 00:30 82 18 114/68 10/05/19 00:25 86 18 121/67 10/05/19 00:15 98 18 109/58 10/05/19 00:00 96 18 116/66 10/04/19 23:23 73 18 139/85 Pulse Ox 10/05/19 12:00 96 10/05/19 11:45 10/05/19 11:30 10/05/19 11:15 10/05/19 11:00 10/05/19 10:45 10/05/19 10:30 10/05/19 10:15 10/05/19 10:00 95 10/05/19 09:45 10/05/19 09:30 10/05/19 09:15 10/05/19 09:00 95 10/05/19 08:30 10/05/19 08:15 10/05/19 08:00 96 10/05/19 06:00 96 10/05/19 05:00 96 10/05/19 04:00 96 10/05/19 03:00 96 10/05/19 02:30 10/05/19 02:00 96 10/05/19 01:55 98 10/05/19 01:10 99 10/05/19 01:00 100 10/05/19 00:50 99 10/05/19 00:40 97 10/05/19 00:30 100 10/05/19 00:25 100 10/05/19 00:15 100 10/05/19 00:00 100 10/04/19 23:23 Intake and Output 10/04/19 10/05/19 10/05/19 22:59 06:59 14:59 Intake Total 1650 688.308 Output Total 0 0 Balance 1650 688.308 Intake: IV 1650 560 NS 1L bolus 1000 Sodium Chloride 0.9% 1, 650 560 000 ml @ 75 mls/hr IV . [id number] [facility] Rx#:[id number] Intake, IV Titration 128.308 Amount Heparin Sod,Pork in 0.45% 71.819 NaCl 25,000 unit In 0.45 % NaCl 1 250ml.bag @ 7.11 UNITS/KG/HR 9.998 mls/hr IV .Q24H [facility] Rx#: [id number] Insulin Regular 100 unit 29.231 In Sodium Chloride 0.9% 100 ml @ Per Protocol IV .Q0M [facility] Rx#:[id number] Norepinephrine 32 mg In 27.258 Sodium Chloride 0.9% 218 ml @ 0.05 MCG/KG/MIN 3. 296 mls/hr IV .Q24H [facility] Rx#:[id number] Output: Urine 0 0 Other: Voiding Method Indwelling Catheter Indwelling Catheter Weight 140.614 kg GENERAL: Revealed 69-year-old white male, obese, intubated, in no distress. Comatose. Head: Atraumatic, normocephalic. Endotracheal tube and nasogastric tube are intact. I had to place a nasogastric tube at bedside. HEENT: Pupils are round, sluggishly reactive to light, no corneal reflex was noted, no icterus, dry mucous membranes, endotracheal tube is intact. CARDIOVASCULAR: Irregular irregular rhythm, no S3 gallop, 2/6 systolic murmur thought the precordium. PULMONARY: Symmetrical chest expansion, crackles at the bases bilaterally. Rhonchi noted bilaterally. ABDOMEN: Obese, Soft, nontender, nondistended, normoactive bowel sounds. No palpable organomegaly. MUSCULOSKELETAL: No joint swelling or deformity. EXTREMITIES: Trace of bipedal edema, no clubbing, no cyanosis, there is a right below-knee amputation, and there is a deep necrotic ulcer in the plantar aspect of the left foot. With foul-smelling discharge from the ulcer noted. NEUROLOGICAL: Absent gag reflex, pupillary reflex corneal and conjunctival reflexes. SKIN: Large deep necrotic ulcer noted in the left plantar aspect of the left foot. AV fistula in right arm. Results - Laboratory Findings CBC and BMP: 10/05/19 04:19 10/05/19 04:19 ABG ABG pH 7.33 (7.35-7.45) L 10/05/19 07:06 ABG pCO2 41 mmHg (35-45) 10/05/19 07:06 ABG pO2 96 mmHg (83-108) 10/05/19 07:06 ABG O2 Saturation 93.8 % (94-97) L 10/05/19 07:06 PT/INR, D-dimer PT 10.5 sec (9.0-12.0) 10/04/19 23:24 INR 1.0 (<1.2) 10/04/19 23:24 Abnormal lab findings: Abnormal Labs 10/04/19 10/04/19 10/04/19 23:24 23:24 23:24 WBC 14.3 H RBC 4.20 L MCV 109.3 H MCHC 29.7 L Plt Count 111 L Neutrophils # Lymphocytes # 5.9 H Monocytes # Macrocytosis Marked A APTT ABG pH ABG pCO2 ABG pO2 ABG O2 Saturation Potassium Carbon Dioxide 15 L BUN 28 H Creatinine 4.60 H Glucose 403 H POC Glucose (mg/dL) Plasma Lactic Acid Santiago Magnesium 2.7 H Alkaline Phosphatase 146 H Troponin I 0.037 H* 10/05/19 10/05/19 10/05/19 00:19 01:25 02:18 WBC RBC MCV MCHC Plt Count Neutrophils # Lymphocytes # Monocytes # Macrocytosis APTT ABG pH 7.13 L* ABG pCO2 63 H ABG pO2 248 H ABG O2 Saturation Potassium Carbon Dioxide BUN Creatinine Glucose POC Glucose (mg/dL) 336 H Plasma Lactic Acid Santiago 9.0 H* Magnesium Alkaline Phosphatase Troponin I 10/05/19 10/05/19 10/05/19 04:19 04:19 04:19 WBC 21.8 H RBC MCV 104.8 H MCHC 30.9 L Plt Count 134 L Neutrophils # 19.1 H Lymphocytes # Monocytes # 1.1 H Macrocytosis APTT 36.3 H ABG pH ABG pCO2 ABG pO2 ABG O2 Saturation Potassium 5.4 H Carbon Dioxide 20 L BUN 37 H Creatinine 4.89 H Glucose 343 H POC Glucose (mg/dL) Plasma Lactic Acid Santiago Magnesium Alkaline Phosphatase Troponin I 10/05/19 10/05/19 10/05/19 06:04 06:36 07:06 WBC RBC MCV MCHC Plt Count Neutrophils # Lymphocytes # Monocytes # Macrocytosis APTT ABG pH 7.33 L ABG pCO2 ABG pO2 ABG O2 Saturation 93.8 L Potassium Carbon Dioxide BUN Creatinine Glucose POC Glucose (mg/dL) 343 H Plasma Lactic Acid Santiago 6.9 H* Magnesium Alkaline Phosphatase Troponin I 10/05/19 10/05/19 10/05/19 09:40 09:54 10:16 WBC RBC MCV MCHC Plt Count Neutrophils # Lymphocytes # Monocytes # Macrocytosis APTT ABG pH ABG pCO2 ABG pO2 ABG O2 Saturation Potassium Carbon Dioxide BUN Creatinine Glucose POC Glucose (mg/dL) 313 H 316 H Plasma Lactic Acid Santiago 5.6 H* Magnesium Alkaline Phosphatase Troponin I 10/05/19 10/05/19 11:12 12:11 WBC RBC MCV MCHC Plt Count Neutrophils # Lymphocytes # Monocytes # Macrocytosis APTT ABG pH ABG pCO2 ABG pO2 ABG O2 Saturation Potassium Carbon Dioxide BUN Creatinine Glucose POC Glucose (mg/dL) 314 H 273 H Plasma Lactic Acid Santiago Magnesium Alkaline Phosphatase Troponin I - Diagnostic Findings Chest x-ray: image reviewed (As noted in HPI.) Assessment and Plan Assessment: Impression: Acute hypoxic and hypercapnic respiratory failure secondary to cardiac arrest. Suspect acute ST elevation myocardial infarction. Sepsis, possible septic shock, primary source likely the left foot, patient will be empirically treated with Zosyn and vancomycin. End-stage renal disease, on hemodialysis. Anion gap metabolic acidosis, multifactorial, secondary to renal failure, hypotension, and strongly suspect sepsis and septic shock. Chronic atrial fibrillation. Diabetic nephropathy and diabetic neuropathy Peripheral vessel occlusive disease and previous right below-knee amputation. Left foot diabetic ulcer, will recommend infectious disease consultation in the meantime we'll treat with vancomycin and Zosyn. Strongly suspect anoxic brain injury secondary to cardiac arrest and prolonged downtime. Recommendation: Continue ventilatory support. Continue hemodynamic support. Hemodialysis/ultrafiltration today. Antibiotics empirically for presumptive sepsis and septic shock. GI and DVT prophylaxis. Insulin for diabetes control. Anticoagulation, patient is to be restarted back on heparin, however if he develops any bleeding from the oral cavity will recommend stopping heparin. Neurological consultation to assess for strongly suspected anoxic brain injury. EEG was ordered. Patient is obviously critically ill,is extremely poor and guarded, we will continue to follow. Critical care time is 50 minutes Time with Patient: Greater than 30
[2019-10-05 13:12] LABS: Glucose,Whole Blood 244 mg/dL (75-99)
[2019-10-05 14:29] LABS: Glucose,Whole Blood 165 mg/dL (75-99)
--- NOTE | 2019-10-05 15:36 | P.CONS ---
History of Present Illness - Reason for Consult Consult date: 10/05/19 Sepsis wound and cardiac arrest Requesting physician: Sofi Hsu - Chief Complaint Collapsed at home x 1 day - History of Present Illness Patient is a 69-year-old male with a past medical history significant for end-stage renal disease on hemodialysis patient apparently collapsed at home for the EMS was called in apparently the patient called a family member because he felt like he was going to vomit he collapsed to the floor family help him to the bed and then placed with him he become unresponsive EMS was called and on arrival EMS patient did have a ACLS protocol, subsequent the patient did rest and while on way to the hospital, patient did get intubated to protect his airways on the admission to hospital chest x-ray was suggestive of pulmonary edema, patient was normothermic he did have elevated white count of 14.3 repeat is up to 21.8, the patient did have elevated lactic as of 9.0 liver enzymes are normal, repeat x-ray today shows worsening small to moderate right pleural effusion patient also noticed to have a wound on his left foot is not careful, he has this wound on the plantar aspect was slight drainage which has been culture patient has been started on vancomycin and Zosyn infection the was consulted for further management of antibiotic therapy most information has been obtained from review the chart and talking nursing staff and the patient currently on the vent and a multivitamin history no family member at the bedside Review of Systems Positive points has been mentioned in HPI complete review could not be obtained because of his underlying mental status Past Medical History Past Medical History: Diabetes Mellitus, Hyperlipidemia, Renal Disease, Vascular Disorder Additional Past Medical History / Comment(s): Seasonal allergies, peripheral neuropathy, peripheral vascular disease, dialysis tuesday, tue, tuesday, wound R foot History of Any Multi-Drug Resistant Organisms: None Reported Year Discovered:: 02/19/2014 MDRO Source:: Left Foot Past Surgical History: Orthopedic Surgery Additional Past Surgical History / Comment(s): Amputation 4th toe left foot, dialysis port to left chest removed, fistula to rt arm. Amputation great toe and 2nd toe rt foot. 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 He has 2 daughters are both diabetic. Medications and Allergies Home Medications Medication Instructions Recorded Confirmed Type Calcium Acetate [PhosLo] 2,001 mg PO AC-BID 06/18/14 10/05/19 History Insulin Detemir (Levemir) [Levemir] 50 unit SQ PC-SUPPER 06/18/14 10/05/19 History Midodrine [ProAmatine] 5 mg PO MOWEFR PRN 06/26/14 10/05/19 History Acetaminophen [Tylenol Arthritis] 650 mg PO Q8H PRN 10/05/19 10/05/19 History Albuterol Inhaler [Ventolin Hfa 2 puff INHALATION Q6H PRN 10/05/19 10/05/19 History Inhaler] Apixaban [Eliquis] 2.5 mg PO BID 10/05/19 10/05/19 History Furosemide [Lasix] 120 mg PO BID 10/05/19 10/05/19 History Lidocaine-Prilocaine Cream [Emla 1 applic TOPICAL MOWEFR PRN 10/05/19 10/05/19 History Cream 2.5%/2.5%] Pantoprazole [Protonix] 40 mg PO DAILY 10/05/19 10/05/19 History Simvastatin [Zocor] 20 mg PO HS 10/05/19 10/05/19 History Allergies Allergy/AdvReac Type Severity Reaction Status Date / Time No Known Allergies Allergy Verified 10/05/19 09:28 Physical Exam Vitals: Vital Signs Temp Pulse Pulse Pulse Resp BP BP 10/05/19 14:15 113/58 10/05/19 14:00 115/58 10/05/19 13:45 113/59 10/05/19 13:30 120/63 10/05/19 13:15 118/59 10/05/19 13:00 120/61 10/05/19 12:45 118/61 10/05/19 12:30 118/64 10/05/19 12:15 119/59 10/05/19 12:00 98.1 F 75 24 122/62 10/05/19 11:45 122/62 10/05/19 11:30 123/65 10/05/19 11:15 129/56 10/05/19 11:00 134/71 05 10:45 76/36 10/05/19 10:30 80/39 05 10:15 104/52 10/05/19 10:00 70 24 10/05/19 09:45 113/49 10/05/19 09:30 116/62 05 09:15 119/57 10/05/19 09:00 71 24 117/55 05 08:30 110/59 05 08:15 112/60 10/05/19 08:00 98.1 F 72 24 135/53 05 06:00 72 24 125/59 05 05:00 75 24 120/61 05 04:00 97.7 F 80 24 126/64 05 03:00 82 24 131/60 05 02:30 96.6 F L 76 22 132/61 05 02:00 97.6 F 78 24 107/48 10/05/19 01:55 86 18 125/64 10/05/19 01:10 75 18 72/56 05 01:00 74 18 85/52 10/05/19 00:50 80 18 94/50 10/05/19 00:40 89 18 109/65 10/05/19 00:30 82 18 114/68 10/05/19 00:25 86 18 121/67 10/05/19 00:15 98 18 109/58 10/05/19 00:00 96 18 116/66 10/04/19 23:23 73 18 139/85 Pulse Ox 10/05/19 14:15 10/05/19 14:00 10/05/19 13:45 10/05/19 13:30 10/05/19 13:15 10/05/19 13:00 10/05/19 12:45 10/05/19 12:30 10/05/19 12:15 10/05/19 12:00 96 10/05/19 11:45 10/05/19 11:30 10/05/19 11:15 10/05/19 11:00 10/05/19 10:45 10/05/19 10:30 10/05/19 10:15 10/05/19 10:00 95 10/05/19 09:45 10/05/19 09:30 10/05/19 09:15 10/05/19 09:00 95 10/05/19 08:30 10/05/19 08:15 10/05/19 08:00 96 10/05/19 06:00 96 10/05/19 05:00 96 10/05/19 04:00 96 10/05/19 03:00 96 10/05/19 02:30 10/05/19 02:00 96 10/05/19 01:55 98 10/05/19 01:10 99 10/05/19 01:00 100 10/05/19 00:50 99 10/05/19 00:40 97 10/05/19 00:30 100 10/05/19 00:25 100 10/05/19 00:15 100 10/05/19 00:00 100 10/04/19 23:23 Intake and Output 10/05/19 10/05/19 10/05/19 06:59 14:59 22:59 Intake Total 1650 812.616 Output Total 0 0 Balance 1650 812.616 Intake: IV 1650 660 NS 1L bolus 1000 Sodium Chloride 0.9% 1, 650 660 000 ml @ 75 mls/hr IV . [id number] [facility] Rx#:[id number] Intake, IV Titration 152.616 Amount Heparin Sod,Pork in 0.45% 71.819 NaCl 25,000 unit In 0.45 % NaCl 1 250ml.bag @ 7.11 UNITS/KG/HR 9.998 mls/hr IV .Q24H [facility] Rx#: [id number] Insulin Regular 100 unit 53.539 In Sodium Chloride 0.9% 100 ml @ Per Protocol IV .Q0M [facility] Rx#:[id number] Norepinephrine 32 mg In 27.258 Sodium Chloride 0.9% 218 ml @ 0.05 MCG/KG/MIN 3. 296 mls/hr IV .Q24H [facility] Rx#:[id number] Output: Urine 0 0 Other: Voiding Method Indwelling Catheter Indwelling Catheter Weight 140.614 kg GENERAL DESCRIPTION: An elderly male intubated on the vent. No tachypnea or accessory muscle of respiration use. HEENT: Shows Pallor , no scleral icterus. Oral mucous membrane is dry. Patient is orally intubated NECK: Trachea central, no thyromegaly. LUNGS: Unlabored breathing. Decreased present at the base. No wheeze or crackle. HEART: S1, S2, regular rate and rhythm. No loud murmur ABDOMEN: Soft, no tenderness , guarding or rigidity, no organomegaly EXTREMITIES: Left foot plantar aspect did have a wound with minimal drainage is no surrounding redness or any foul-smelling drainage SKIN: No rash, no masses palpable. NEUROLOGICAL: The patient is sedated on the vent Results CBC & Chem 7: 10/05/19 04:19 10/05/19 04:19 Labs: Abnormal Lab Results - Last 24 Hours (Table) 10/04/19 10/04/19 10/04/19 Range/Units 23:24 23:24 23:24 WBC 14.3 H (3.8-10.6) k/uL RBC 4.20 L (4.30-5.90) m/uL MCV 109.3 H (80.0-100.0) fL MCHC 29.7 L (31.0-37.0) g/dL Plt Count 111 L (150-450) k/uL Neutrophils # (1.3-7.7) k/uL Lymphocytes # 5.9 H (1.0-4.8) k/uL Monocytes # (0-1.0) k/uL Macrocytosis Marked A APTT (22.0-30.0) sec ABG pH (7.35-7.45) ABG pCO2 (35-45) mmHg ABG pO2 (83-108) mmHg ABG O2 Saturation (94-97) % Potassium (3.5-5.1) mmol/L Carbon Dioxide 15 L (22-30) mmol/L BUN 28 H (9-20) mg/dL Creatinine 4.60 H (0.66-1.25) mg/dL Glucose 403 H (74-99) mg/dL POC Glucose (mg/dL) (75-99) mg/dL Plasma Lactic Acid Santiago (0.7-2.0) mmol/L Magnesium 2.7 H (1.6-2.3) mg/dL Alkaline Phosphatase 146 H (38-126) U/L Troponin I 0.037 H* (0.000-0.034) ng/mL 10/05/19 10/05/19 10/05/19 Range/Units 00:19 01:25 02:18 WBC (3.8-10.6) k/uL RBC (4.30-5.90) m/uL MCV (80.0-100.0) fL MCHC (31.0-37.0) g/dL Plt Count (150-450) k/uL Neutrophils # (1.3-7.7) k/uL Lymphocytes # (1.0-4.8) k/uL Monocytes # (0-1.0) k/uL Macrocytosis APTT (22.0-30.0) sec ABG pH 7.13 L* (7.35-7.45) ABG pCO2 63 H (35-45) mmHg ABG pO2 248 H (83-108) mmHg ABG O2 Saturation (94-97) % Potassium (3.5-5.1) mmol/L Carbon Dioxide (22-30) mmol/L BUN (9-20) mg/dL Creatinine (0.66-1.25) mg/dL Glucose (74-99) mg/dL POC Glucose (mg/dL) 336 H (75-99) mg/dL Plasma Lactic Acid Santiago 9.0 H* (0.7-2.0) mmol/L Magnesium (1.6-2.3) mg/dL Alkaline Phosphatase (38-126) U/L Troponin I (0.000-0.034) ng/mL 10/05/19 10/05/19 10/05/19 Range/Units 04:19 04:19 04:19 WBC 21.8 H (3.8-10.6) k/uL RBC (4.30-5.90) m/uL MCV 104.8 H (80.0-100.0) fL MCHC 30.9 L (31.0-37.0) g/dL Plt Count 134 L (150-450) k/uL Neutrophils # 19.1 H (1.3-7.7) k/uL Lymphocytes # (1.0-4.8) k/uL Monocytes # 1.1 H (0-1.0) k/uL Macrocytosis APTT 36.3 H (22.0-30.0) sec ABG pH (7.35-7.45) ABG pCO2 (35-45) mmHg ABG pO2 (83-108) mmHg ABG O2 Saturation (94-97) % Potassium 5.4 H (3.5-5.1) mmol/L Carbon Dioxide 20 L (22-30) mmol/L BUN 37 H (9-20) mg/dL Creatinine 4.89 H (0.66-1.25) mg/dL Glucose 343 H (74-99) mg/dL POC Glucose (mg/dL) (75-99) mg/dL Plasma Lactic Acid Santiago (0.7-2.0) mmol/L Magnesium (1.6-2.3) mg/dL Alkaline Phosphatase (38-126) U/L Troponin I (0.000-0.034) ng/mL 10/05/19 10/05/19 10/05/19 Range/Units 06:04 06:36 07:06 WBC (3.8-10.6) k/uL RBC (4.30-5.90) m/uL MCV (80.0-100.0) fL MCHC (31.0-37.0) g/dL Plt Count (150-450) k/uL Neutrophils # (1.3-7.7) k/uL Lymphocytes # (1.0-4.8) k/uL Monocytes # (0-1.0) k/uL Macrocytosis APTT (22.0-30.0) sec ABG pH 7.33 L (7.35-7.45) ABG pCO2 (35-45) mmHg ABG pO2 (83-108) mmHg ABG O2 Saturation 93.8 L (94-97) % Potassium (3.5-5.1) mmol/L Carbon Dioxide (22-30) mmol/L BUN (9-20) mg/dL Creatinine (0.66-1.25) mg/dL Glucose (74-99) mg/dL POC Glucose (mg/dL) 343 H (75-99) mg/dL Plasma Lactic Acid Santiago 6.9 H* (0.7-2.0) mmol/L Magnesium (1.6-2.3) mg/dL Alkaline Phosphatase (38-126) U/L Troponin I (0.000-0.034) ng/mL 10/05/19 10/05/19 10/05/19 Range/Units 09:40 09:54 10:16 WBC (3.8-10.6) k/uL RBC (4.30-5.90) m/uL MCV (80.0-100.0) fL MCHC (31.0-37.0) g/dL Plt Count (150-450) k/uL Neutrophils # (1.3-7.7) k/uL Lymphocytes # (1.0-4.8) k/uL Monocytes # (0-1.0) k/uL Macrocytosis APTT (22.0-30.0) sec ABG pH (7.35-7.45) ABG pCO2 (35-45) mmHg ABG pO2 (83-108) mmHg ABG O2 Saturation (94-97) % Potassium (3.5-5.1) mmol/L Carbon Dioxide (22-30) mmol/L BUN (9-20) mg/dL Creatinine (0.66-1.25) mg/dL Glucose (74-99) mg/dL POC Glucose (mg/dL) 313 H 316 H (75-99) mg/dL Plasma Lactic Acid Santiago 5.6 H* (0.7-2.0) mmol/L Magnesium (1.6-2.3) mg/dL Alkaline Phosphatase (38-126) U/L Troponin I (0.000-0.034) ng/mL 10/05/19 10/05/19 10/05/19 Range/Units 11:12 12:11 13:10 WBC (3.8-10.6) k/uL RBC (4.30-5.90) m/uL MCV (80.0-100.0) fL MCHC (31.0-37.0) g/dL Plt Count (150-450) k/uL Neutrophils # (1.3-7.7) k/uL Lymphocytes # (1.0-4.8) k/uL Monocytes # (0-1.0) k/uL Macrocytosis APTT (22.0-30.0) sec ABG pH (7.35-7.45) ABG pCO2 (35-45) mmHg ABG pO2 (83-108) mmHg ABG O2 Saturation (94-97) % Potassium (3.5-5.1) mmol/L Carbon Dioxide (22-30) mmol/L BUN (9-20) mg/dL Creatinine (0.66-1.25) mg/dL Glucose (74-99) mg/dL POC Glucose (mg/dL) 314 H 273 H 244 H (75-99) mg/dL Plasma Lactic Acid Sat[place] (0.7-2.0) mmol/L Magnesium (1.6-2.3) mg/dL Alkaline Phosphatase (38-126) U/L Troponin I (0.000-0.034) ng/mL 10/05/19 Range/Units 14:27 WBC (3.8-10.6) k/uL RBC (4.30-5.90) m/uL MCV (80.0-100.0) fL MCHC (31.0-37.0) g/dL Plt Count (150-450) k/uL Neutrophils # (1.3-7.7) k/uL Lymphocytes # (1.0-4.8) k/uL Monocytes # (0-1.0) k/uL Macrocytosis APTT (22.0-30.0) sec ABG pH (7.35-7.45) ABG pCO2 (35-45) mmHg ABG pO2 (83-108) mmHg ABG O2 Saturation (94-97) % Potassium (3.5-5.1) mmol/L Carbon Dioxide (22-30) mmol/L BUN (9-20) mg/dL Creatinine (0.66-1.25) mg/dL Glucose (74-99) mg/dL POC Glucose (mg/dL) 165 H (75-99) mg/dL Plasma Lactic Acid Santiago (0.7-2.0) mmol/L Magnesium (1.6-2.3) mg/dL Alkaline Phosphatase (38-126) U/L Troponin I (0.000-0.034) ng/mL Microbiology - Last 24 Hours (Table) 10/05/19 02:52 Sputum Culture - Preliminary Sputum Assessment and Plan Assessment: 1- patient presented to the hospital after he did have a cardiac arrest at home subsequently did have a breast on respiratory to the hospital and the third cardiac arrest while in the ICU in this patient who did have underlying end- stage renal disease on hemodialysis and multiple comorbidity, in this patient with a possible component of sepsis as the patient did have elevated white count and hypotensive requiring pressor support source could be aspiration pneumonitis and also left diabetic foot wound with a course of both gram- positive as well as gram-negative pathogen (1) Sepsis Current Visit: Yes Status: Acute Code(s): A41.9 - SEPSIS, UNSPECIFIED ORGANISM SNOMED Code(s): 83413758 (2) Aspiration pneumonitis Current Visit: Yes Status: Acute Code(s): J69.0 - PNEUMONITIS DUE TO INHALATION OF FOOD AND VOMIT SNOMED Code(s): 028678043 (3) Diabetic ulcer of left foot Current Visit: Yes Status: Acute Code(s): E11.621 - TYPE 2 DIABETES MELLITUS WITH FOOT ULCER; L97.529 - NON-PRESSURE CHRONIC ULCER OTH PRT LEFT FOOT W UNSP SEVERITY SNOMED Code(s): 803086818 Plan: 1- local wound culture has been obtained as the former will also request sputum for gram stain and culture 2-Vancomycin pharmacy to dose target trough of 15 while watching his kidney function and Vanco trough closely 3-Zosyn 3.375 g every 12 hours 4-dry Aquacel silver dressing to the left foot wound to be changed every 48 hour We will follow on clinical condition and cultures to further adjust medication if needed Thank you for this consultation will follow this patient with you
[2019-10-05 16:03] LABS: Glucose,Whole Blood 141 mg/dL (75-99)
--- NOTE | 2019-10-05 16:41 | P.CNNES ---
History of Present Illness Consult date: 10/05/19 Reason for Consult: Anoxic brain injury History of Present Illness: This is a new neurology consult requested for further advice recommendations for 69-year-old gentleman with a complicated past medical history of poorly controlled diabetes, hypertension, dyslipidemia, end-stage renal disease on dialysis. Patient also has a history of congestive heart failure. The patient was found down in his home collapsed. His grandson reports that jus t prior to him collapsing he reported he suddenly could not breathe well. A family member gave CPR for 6 minutes he was reported to be pulseless. Upon arrival be was intubated by EMS. On admission he was found to have pulmonary edema in his chest. Neurologically on admission he was found to have no gag reflex, nonreactive pupils. Pertinent labs included elevated lactic acid, mildly elevated troponin, creatinine elevated 4.6 elevated white count with left shift presumed to be sepsis he has an open wound sore. Patient was transferred to ICU for further management. He has continued to mercedes in unresponsive even off sedation. Minimum no gag reflex reported no spontaneous movements or eye openings. Glascow less than 3. Past Medical History Past Medical History: Diabetes Mellitus, Hyperlipidemia, Renal Disease, Vascular Disorder Additional Past Medical History / Comment(s): Seasonal allergies, peripheral neuropathy, peripheral vascular disease, dialysis tuesday, tue, tuesday, wound R foot History of Any Multi-Drug Resistant Organisms: None Reported Date of last positivie culture/infection: 02/19/2014 MDRO Source:: Left Foot Past Surgical History: Orthopedic Surgery Additional Past Surgical History / Comment(s): Amputation 4th toe left foot, dialysis port to left chest removed, fistula to rt arm. Amputation great toe and 2nd toe rt foot. 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 He has 2 daughters are both diabetic. Medications and Allergies Home Medications Medication Instructions Recorded Confirmed Type Calcium Acetate [PhosLo] 2,001 mg PO AC-BID 06/18/14 10/05/19 History Insulin Detemir (Levemir) [Levemir] 50 unit SQ PC-SUPPER 06/18/14 10/05/19 History Midodrine [ProAmatine] 5 mg PO MOWEFR PRN 06/26/14 10/05/19 History Acetaminophen [Tylenol Arthritis] 650 mg PO Q8H PRN 10/05/19 10/05/19 History Albuterol Inhaler [Ventolin Hfa 2 puff INHALATION Q6H PRN 10/05/19 10/05/19 History Inhaler] Apixaban [Eliquis] 2.5 mg PO BID 10/05/19 10/05/19 History Furosemide [Lasix] 120 mg PO BID 10/05/19 10/05/19 History Lidocaine-Prilocaine Cream [Emla 1 applic TOPICAL MOWEFR PRN 10/05/19 10/05/19 History Cream 2.5%/2.5%] Pantoprazole [Protonix] 40 mg PO DAILY 10/05/19 10/05/19 History Simvastatin [Zocor] 20 mg PO HS 10/05/19 10/05/19 History Allergies Allergy/AdvReac Type Severity Reaction Status Date / Time No Known Allergies Allergy Verified 10/05/19 09:28 Physical Examination - Vital Signs Vital Signs: Vital Signs Temp Pulse Pulse Pulse Resp BP BP 10/05/19 14:15 113/58 10/05/19 14:00 115/58 10/05/19 13:45 113/59 10/05/19 13:30 120/63 10/05/19 13:15 118/59 10/05/19 13:00 120/61 10/05/19 12:45 118/61 10/05/19 12:30 118/64 10/05/19 12:15 119/59 10/05/19 12:00 98.1 F 75 24 122/62 10/05/19 11:45 122/62 10/05/19 11:30 123/65 10/05/19 11:15 129/56 10/05/19 11:00 134/71 10/05/19 10:45 76/36 10/05/19 10:30 80/39 10/05/19 10:15 104/52 10/05/19 10:00 70 24 10/05/19 09:45 113/49 10/05/19 09:30 116/62 05 09:15 119/57 10/05/19 09:00 71 24 117/55 10/05/19 08:30 110/59 05 08:15 112/60 10/05/19 08:00 98.1 F 72 24 135/53 05 06:00 72 24 125/59 05 05:00 75 24 120/61 05 04:00 97.7 F 80 24 126/64 05 03:00 82 24 131/60 05 02:30 96.6 F L 76 22 132/61 05 02:00 97.6 F 78 24 107/48 10/05/19 01:55 86 18 125/64 10/05/19 01:10 75 18 72/56 10/05/19 01:00 74 18 85/52 10/05/19 00:50 80 18 94/50 10/05/19 00:40 89 18 109/65 10/05/19 00:30 82 18 114/68 10/05/19 00:25 86 18 121/67 10/05/19 00:15 98 18 109/58 10/05/19 00:00 96 18 116/66 10/04/19 23:23 73 18 139/85 Pulse Ox 10/05/19 14:15 10/05/19 14:00 10/05/19 13:45 10/05/19 13:30 10/05/19 13:15 10/05/19 13:00 10/05/19 12:45 10/05/19 12:30 10/05/19 12:15 10/05/19 12:00 96 10/05/19 11:45 10/05/19 11:30 10/05/19 11:15 10/05/19 11:00 10/05/19 10:45 10/05/19 10:30 10/05/19 10:15 10/05/19 10:00 95 10/05/19 09:45 10/05/19 09:30 10/05/19 09:15 10/05/19 09:00 95 10/05/19 08:30 10/05/19 08:15 10/05/19 08:00 96 10/05/19 06:00 96 10/05/19 05:00 96 10/05/19 04:00 96 10/05/19 03:00 96 10/05/19 02:30 10/05/19 02:00 96 10/05/19 01:55 98 10/05/19 01:10 99 10/05/19 01:00 100 10/05/19 00:50 99 10/05/19 00:40 97 10/05/19 00:30 100 10/05/19 00:25 100 10/05/19 00:15 100 10/05/19 00:00 100 10/04/19 23:23 Intake and Output 10/05/19 10/05/19 10/05/19 06:59 14:59 22:59 Intake Total 1650 812.616 Output Total 0 0 Balance 1650 812.616 Intake: IV 1650 660 NS 1L bolus 1000 Sodium Chloride 0.9% 1, 650 660 000 ml @ 75 mls/hr IV . [id number] [facility] Rx#:[id number] Intake, IV Titration 152.616 Amount Heparin Sod,Pork in 0.45% 71.819 NaCl 25,000 unit In 0.45 % NaCl 1 250ml.bag @ 7.11 UNITS/KG/HR 9.998 mls/hr IV .Q24H [facility] Rx#: [id number] Insulin Regular 100 unit 53.539 In Sodium Chloride 0.9% 100 ml @ Per Protocol IV .Q0M [facility] Rx#:[id number] Norepinephrine 32 mg In 27.258 Sodium Chloride 0.9% 218 ml @ 0.05 MCG/KG/MIN 3. 296 mls/hr IV .Q24H [facility] Rx#:[id number] Output: Urine 0 0 Other: Voiding Method Indwelling Catheter Indwelling Catheter Weight 140.614 kg Patient examined and chart reviewed. Glascow coma scale (3) Exam performed on hemodialysis. Pupils: 1 mm minimally reactive to light and accommodation Cranial nerves: No roving eye movements noted fixated gaze. Face appears symme tric. Gag reflex is absent. Motor examination: No spontaneous movement noted. Deep tendon reflexes deferred Results - Laboratory Findings CBC and BMP: 10/05/19 04:19 05/01/20 04:19 Abnormal Lab Findings: Abnormal Labs 10/04/19 10/04/19 10/04/19 23:24 23:24 23:24 WBC 14.3 H RBC 4.20 L MCV 109.3 H MCHC 29.7 L Plt Count 111 L Neutrophils # Lymphocytes # 5.9 H Monocytes # Macrocytosis Marked A APTT ABG pH ABG pCO2 ABG pO2 ABG O2 Saturation Potassium Carbon Dioxide 15 L BUN 28 H Creatinine 4.60 H Glucose 403 H POC Glucose (mg/dL) Plasma Lactic Acid Santiago Magnesium 2.7 H Alkaline Phosphatase 146 H Troponin I 0.037 H* 10/05/19 10/05/19 10/05/19 00:19 01:25 02:18 WBC RBC MCV MCHC Plt Count Neutrophils # Lymphocytes # Monocytes # Macrocytosis APTT ABG pH 7.13 L* ABG pCO2 63 H ABG pO2 248 H ABG O2 Saturation Potassium Carbon Dioxide BUN Creatinine Glucose POC Glucose (mg/dL) 336 H Plasma Lactic Acid Santiago 9.0 H* Magnesium Alkaline Phosphatase Troponin I 10/05/19 10/05/19 10/05/19 04:19 04:19 04:19 WBC 21.8 H RBC MCV 104.8 H MCHC 30.9 L Plt Count 134 L Neutrophils # 19.1 H Lymphocytes # Monocytes # 1.1 H Macrocytosis APTT 36.3 H ABG pH ABG pCO2 ABG pO2 ABG O2 Saturation Potassium 5.4 H Carbon Dioxide 20 L BUN 37 H Creatinine 4.89 H Glucose 343 H POC Glucose (mg/dL) Plasma Lactic Acid Santiago Magnesium Alkaline Phosphatase Troponin I 10/05/19 10/05/19 10/05/19 06:04 06:36 07:06 WBC RBC MCV MCHC Plt Count Neutrophils # Lymphocytes # Monocytes # Macrocytosis APTT ABG pH 7.33 L ABG pCO2 ABG pO2 ABG O2 Saturation 93.8 L Potassium Carbon Dioxide BUN Creatinine Glucose POC Glucose (mg/dL) 343 H Plasma Lactic Acid Santiago 6.9 H* Magnesium Alkaline Phosphatase Troponin I 10/05/19 10/05/19 10/05/19 09:40 09:54 10:16 WBC RBC MCV MCHC Plt Count Neutrophils # Lymphocytes # Monocytes # Macrocytosis APTT ABG pH ABG pCO2 ABG pO2 ABG O2 Saturation Potassium Carbon Dioxide BUN Creatinine Glucose POC Glucose (mg/dL) 313 H 316 H Plasma Lactic Acid Santiago 5.6 H* Magnesium Alkaline Phosphatase Troponin I 10/05/19 10/05/19 10/05/19 11:12 12:11 13:10 WBC RBC MCV MCHC Plt Count Neutrophils # Lymphocytes # Monocytes # Macrocytosis APTT ABG pH ABG pCO2 ABG pO2 ABG O2 Saturation Potassium Carbon Dioxide BUN Creatinine Glucose POC Glucose (mg/dL) 314 H 273 H 244 H Plasma Lactic Acid Santiago Magnesium Alkaline Phosphatase Troponin I 10/05/19 14:27 WBC RBC MCV MCHC Plt Count Neutrophils # Lymphocytes # Monocytes # Macrocytosis APTT ABG pH ABG pCO2 ABG pO2 ABG O2 Saturation Potassium Carbon Dioxide BUN Creatinine Glucose POC Glucose (mg/dL) 165 H Plasma Lactic Acid Santiago Magnesium Alkaline Phosphatase Troponin I - Diagnostic Findings Chest x-ray: report reviewed Assessment and Plan Assessment: This is a 69-year-old gentleman morbidly obese with chronic illness involving end-stage renal disease on hemodialysis, poorly controlled diabetes, hypertension and atrial fibrillation. The patient unfortunately had a cardio pulmonary arrest and was found to have acute hypoxic hypercapnic respiratory failure also thought to be secondary to pulmonary edema. High probability as well that sepsis is involved based on an a non-healing wound and elevated white count with left shift. At the present time this patient's neurological exam reveals poor prognosis. Off sedation he had no response to stimulation pupils are fixed no gag reflex. I had the opportunity to talk with his grandson Roger at [phone]. He understands the grave prognosis with this heart attack and likelihood of survival. He is going to speak with other family members as to making decisions about life support and and aggressive management. Recommendations: 1. EEG within the next 24 hours to rule out electrocerebral silence. 2. Computed tomography scan of the head noncontrast tonight. 3. Continue with neuro checks every 2 hours. 4. Continue close discussion with family as to prognosis and management. Thank you for this consultation. This patient's prognosis remains very poor. Neurology will be [facility] hcm consultant this weekend and available for consultation. Neurology will follow this plate patient closely during this admission. Please note that Dr. Gongora will take over neurology service on Tuesday at 0800
[2019-10-05] MEDS: CALCIUM ACETATE 667 MG TAB PO SCH (17:40)
[2019-10-05 17:52] LABS: Glucose,Whole Blood 122 mg/dL (75-99)
[2019-10-05 19:29] LABS: Glucose,Whole Blood 198 mg/dL (75-99)
--- NOTE | 2019-10-05 19:30 | OP ---
OPERATIVE REPORT OPERATIVE PROCEDURE: Placement of left radial arterial line. PREOPERATIVE DIAGNOSIS: Cardiac arrest. POSTOPERATIVE DIAGNOSIS: Cardiac arrest. ANESTHESIA USED: None deployed. PROCEDURE DESCRIPTION: The patient was placed in supine position. The left wrist was prepared in a sterile fashion and drapes were applied. The left radial artery was palpated, cannulated, and a guidewire was placed. A Cook's catheter was inserted over the guidewire, and the guidewire was removed. Good blood flow and good waveform noted. Line was secured using 3.0 silk sutures. Procedure was well tolerated. MMODL / IJN: [id number] /
[2019-10-05 20:25] LABS: Glucose,Whole Blood 157 mg/dL (75-99)
[2019-10-05] MEDS ORDERED: ATORVASTATIN 10 MG TAB PO SCH (21:00)
[2019-10-05 21:03] LABS: Glucose,Whole Blood 175 mg/dL (75-99)
[2019-10-06 00:13] LABS: Glucose,Whole Blood 121 mg/dL (75-99)
--- NOTE | 2019-10-06 01:39 | CT ---
EXAMINATION TYPE: CT brain wo con DATE OF EXAM: 10/06/2019 COMPARISON: 03/04/2014 HISTORY: ams CT DLP: 1129.4 mGycm Automated exposure control for dose reduction was used. Exam performed without contrast. There is diffuse hypodensity in the occipital lobes bilaterally and also involvement of the cerebellar hemispheres and the inferior right frontal lobe and the parietal l obes on the right side more than the left. There is no midline shift. There is no sign of intracrania l hemorrhage. Ventricles have normal size. Calvarium is intact. There is also bilateral internal caps ule white matter hypodensity. IMPRESSION: Diffuse pérez and white matter hypodensity which could relate to an anoxic subacute encephalopathy. Th is is a change compared to old exam.
[2019-10-06 02:03] LABS: Glucose,Whole Blood 145 mg/dL (75-99)
[2019-10-06 04:31] LABS: Glucose,Whole Blood 153 mg/dL (75-99)
[2019-10-06 05:22] LABS: Basophils % (A) 0 %; Eosinophils % (A) 0 %; HCT 41.9 % (39.0-53.0); HGB 13.3 gm/dL (13.0-17.5); Hypochromasia Moderate; Lymphocytes # (A) 0.9 k/uL (1.0-4.8); Lymphocytes % (A) 5 %; MCH 32.4 pg (25.0-35.0); MCHC 31.7 g/dL (31.0-37.0); MCV 102.2 fL (80.0-100.0); Macrocytosis Slight; Monocytes # (A) 0.7 k/uL (0-1.0); Monocytes % (A) 4 %; Neutrophils # (A) 17.7 k/uL (1.3-7.7); Neutrophils % (A) 90 %; Platelet Count 113 k/uL (150-450); RDW 14.8 % (11.5-15.5); WBC 19.6 k/uL (3.8-10.6)
[2019-10-06 05:41] LABS: Albumin 3.5 g/dL (3.5-5.0); Calcium 8.3 mg/dL (8.4-10.2); Total Bilirubin 1.2 mg/dL (0.2-1.3); Total Protein 7.2 g/dL (6.3-8.2)
[2019-10-06 05:50] LABS: Glucose,Whole Blood 159 mg/dL (75-99)
--- NOTE | 2019-10-06 06:40 | XR ---
EXAMINATION TYPE: XR chest 1V portable DATE OF EXAM: 10/06/2019 HISTORY: Tube placement. REFERENCE: Previous study dated 10/05/2019. FINDINGS: The patient's ET tube and NG tube remain in place, unchanged in appearance. Pulmonary vasculature is improved slightly. Interstitial edema has partially resolved. There continue s to be some confluent airspace disease the right lung base. Heart size is largely obscured. There is blunting of both CP angles suggesting small, bilateral effusions. IMPRESSION: IMPROVING CHANGES OF CONGESTIVE HEART FAILURE.
[2019-10-06 07:06] LABS: Glucose,Whole Blood 179 mg/dL (75-99)
[2019-10-06] MEDS ORDERED: PANTOPRAZOLE 40 MG TABLET PO SCH (07:30)
[2019-10-06 07:46] LABS: ABG Base Excess 0.2 mmol/L; ABG HCO3 24 mmol/L (21-25); ABG PCO2 34 mmHg (35-45); ABG PH 7.46 (7.35-7.45); ABG PO2 119 mmHg (83-108); ABG TCO2 25 mmol/L (19-24)
[2019-10-06 07:47] LABS: Allen Test Performed? no
[2019-10-06 08:29] LABS: Glucose,Whole Blood 176 mg/dL (75-99)
[2019-10-06] MEDS ORDERED: VANCOMYCIN 2,000 MG in SODIUM CHLORIDE 0.9% 500 ML 500 ML IVPB ONE (09:00)
[2019-10-06] MEDS ORDERED: FAMOTIDINE 20 MG/2 ML VIAL IV SCH (09:00)
[2019-10-06] MEDS: CALCIUM ACETATE 667 MG TAB PO SCH ×2 (09:11→16:39)
[2019-10-06 09:25] LABS: Glucose,Whole Blood 141 mg/dL (75-99)
[2019-10-06] MEDS: CHLORHEXIDINE GLUCONATE 15 ML CUP MUCOUS MEM SCH (09:35)
[2019-10-06] MEDS: DEXAMETHASONE SOD PHOSPHATE 4 MG/ML 1 ML VIAL IV SCH ×3 (09:36→17:41)
[2019-10-06] MEDS: PIPERACILLIN-TAZOBACTAM 3.375 GM in SODIUM CHLORIDE 0.9% 100 ML IVPB SCH (09:36)
[2019-10-06 11:03] LABS: Glucose,Whole Blood 164 mg/dL (75-99)
[2019-10-06] MEDS: SODIUM CHLORIDE 0.9% 1,000 ML IV SCH (11:14)
--- NOTE | 2019-10-06 11:37 | P.PN ---
Subjective Progress Note Date: 10/06/19 Follow-up for ESRD. Cardiopulmonary arrest with down time of 35-40 minutes. Currently on ventilator with minimal settings. Right upper arm AV fistula. On levo fed for hemodynamic support. Objective - Vital Signs Vital signs: Vital Signs Temp 96.8 F L 10/05/19 19:58 Pulse 86 10/06/19 06:00 Resp 24 10/06/19 06:00 BP 124/58 10/05/19 19:58 Pulse Ox 97 10/06/19 06:00 Intake & Output 10/05/19 10/06/19 10/06/19 18:59 06:59 18:59 Intake Total 1079.685 747.851 169.180 Output Total 0 2002 0 Balance 1079.685 -1254.149 169.180 Intake: IV 910 710 56 Piperacillin-Tazobactam 3 100 .375 gm In Sodium Chloride 0.9% 100 ml @ 25 mls/hr IVPB Q12HR [facility] Rx #:[id number] Pressure bag 60 6 Sodium Chloride 0.9% 1, 910 550 50 000 ml @ 50 mls/hr IV . Q20H [facility] Rx#:[id number] Intake, IV Titration 169.685 37.851 113.180 Amount Heparin Sod,Pork in 0.45% 71.819 NaCl 25,000 unit In 0.45 % NaCl 1 250ml.bag @ 7.11 UNITS/KG/HR 9.998 mls/hr IV .Q24H [facility] Rx#: [id number] Insulin Regular 100 unit 70.608 37.851 24.324 In Sodium Chloride 0.9% 100 ml @ Per Protocol IV .Q0M [facility] Rx#:[id number] Norepinephrine 32 mg In 27.258 88.856 Sodium Chloride 0.9% 218 ml @ 0.05 MCG/KG/MIN 3. 296 mls/hr IV .Q24H [facility] Rx#:[id number] Output: Urine 0 2 0 Hemodialysis 1999 Other: Voiding Method Indwelling Catheter Indwelling Catheter ABP, PAP, CO, CI - Last Documented Arterial Blood Pressure 121/54 - Exam Intubated and sedated S1-S2 heard Lungs clear Oral intubation Right upper arm aVF Right BKA Edema - Labs CBC & Chem 7: 10/06/19 04:25 10/06/19 04:25 Labs: Abnormal Lab Results - Last 24 Hours (Table) 10/05/19 10/05/19 10/05/19 Range/Units 12:11 13:10 14:27 WBC (3.8-10.6) k/uL RBC (4.30-5.90) m/uL MCV (80.0-100.0) fL Plt Count (150-450) k/uL Neutrophils # (1.3-7.7) k/uL Lymphocytes # (1.0-4.8) k/uL ABG pH (7.35-7.45) ABG pCO2 (35-45) mmHg ABG pO2 (83-108) mmHg ABG Total CO2 (19-24) mmol/L ABG O2 Saturation (94-97) % Potassium (3.5-5.1) mmol/L Carbon Dioxide (22-30) mmol/L BUN (9-20) mg/dL Creatinine (0.66-1.25) mg/dL Glucose (74-99) mg/dL POC Glucose (mg/dL) 273 H 244 H 165 H (75-99) mg/dL Calcium (8.4-10.2) mg/dL AST (17-59) U/L 10/05/19 10/05/19 10/05/19 Range/Units 16:02 17:50 19:27 WBC (3.8-10.6) k/uL RBC (4.30-5.90) m/uL MCV (80.0-100.0) fL Plt Count (150-450) k/uL Neutrophils # (1.3-7.7) k/uL Lymphocytes # (1.0-4.8) k/uL ABG pH (7.35-7.45) ABG pCO2 (35-45) mmHg ABG pO2 (83-108) mmHg ABG Total CO2 (19-24) mmol/L ABG O2 Saturation (94-97) % Potassium (3.5-5.1) mmol/L Carbon Dioxide (22-30) mmol/L BUN (9-20) mg/dL Creatinine (0.66-1.25) mg/dL Glucose (74-99) mg/dL POC Glucose (mg/dL) 141 H 122 H 198 H (75-99) mg/dL Calcium (8.4-10.2) mg/dL AST (17-59) U/L 10/05/19 10/05/19 10/06/19 Range/Units 20:23 21:01 00:11 WBC (3.8-10.6) k/uL RBC (4.30-5.90) m/uL MCV (80.0-100.0) fL Plt Count (150-450) k/uL Neutrophils # (1.3-7.7) k/uL Lymphocytes # (1.0-4.8) k/uL ABG pH (7.35-7.45) ABG pCO2 (35-45) mmHg ABG pO2 (83-108) mmHg ABG Total CO2 (19-24) mmol/L ABG O2 Saturation (94-97) % Potassium (3.5-5.1) mmol/L Carbon Dioxide (22-30) mmol/L BUN (9-20) mg/dL Creatinine (0.66-1.25) mg/dL Glucose (74-99) mg/dL POC Glucose (mg/dL) 157 H 175 H 121 H (75-99) mg/dL Calcium (8.4-10.2) mg/dL AST (17-59) U/L 10/06/19 10/06/19 10/06/19 Range/Units 02:02 04:25 04:25 WBC 19.6 H (3.8-10.6) k/uL RBC 4.10 L (4.30-5.90) m/uL MCV 102.2 H (80.0-100.0) fL Plt Count 113 L (150-450) k/uL Neutrophils # 17.7 H (1.3-7.7) k/uL Lymphocytes # 0.9 L (1.0-4.8) k/uL ABG pH (7.35-7.45) ABG pCO2 (35-45) mmHg ABG pO2 (83-108) mmHg ABG Total CO2 (19-24) mmol/L ABG O2 Saturation (94-97) % Potassium 6.0 H (3.5-5.1) mmol/L Carbon Dioxide 21 L (22-30) mmol/L BUN 31 H (9-20) mg/dL Creatinine 4.29 H (0.66-1.25) mg/dL Glucose 167 H (74-99) mg/dL POC Glucose (mg/dL) 145 H (75-99) mg/dL Calcium 8.3 L (8.4-10.2) mg/dL AST 96 H (17-59) U/L 10/06/19 10/06/19 10/06/19 Range/Units 04:30 05:48 07:05 WBC (3.8-10.6) k/uL RBC (4.30-5.90) m/uL MCV (80.0-100.0) fL Plt Count (150-450) k/uL Neutrophils # (1.3-7.7) k/uL Lymphocytes # (1.0-4.8) k/uL ABG pH (7.35-7.45) ABG pCO2 (35-45) mmHg ABG pO2 (83-108) mmHg ABG Total CO2 (19-24) mmol/L ABG O2 Saturation (94-97) % Potassium (3.5-5.1) mmol/L Carbon Dioxide (22-30) mmol/L BUN (9-20) mg/dL Creatinine (0.66-1.25) mg/dL Glucose (74-99) mg/dL POC Glucose (mg/dL) 153 H 159 H 179 H (75-99) mg/dL Calcium (8.4-10.2) mg/dL AST (17-59) U/L 10/06/19 10/06/19 10/06/19 Range/Units 07:43 08:27 09:23 WBC (3.8-10.6) k/uL RBC (4.30-5.90) m/uL MCV (80.0-100.0) fL Plt Count (150-450) k/uL Neutrophils # (1.3-7.7) k/uL Lymphocytes # (1.0-4.8) k/uL ABG pH 7.46 H (7.35-7.45) ABG pCO2 34 L (35-45) mmHg ABG pO2 119 H (83-108) mmHg ABG Total CO2 25 H (19-24) mmol/L ABG O2 Saturation 98.0 H (94-97) % Potassium (3.5-5.1) mmol/L Carbon Dioxide (22-30) mmol/L BUN (9-20) mg/dL Creatinine (0.66-1.25) mg/dL Glucose (74-99) mg/dL POC Glucose (mg/dL) 176 H 141 H (75-99) mg/dL Calcium (8.4-10.2) mg/dL AST (17-59) U/L 10/06/19 Range/Units 11:02 WBC (3.8-10.6) k/uL RBC (4.30-5.90) m/uL MCV (80.0-100.0) fL Plt Count (150-450) k/uL Neutrophils # (1.3-7.7) k/uL Lymphocytes # (1.0-4.8) k/uL ABG pH (7.35-7.45) ABG pCO2 (35-45) mmHg ABG pO2 (83-108) mmHg ABG Total CO2 (19-24) mmol/L ABG O2 Saturation (94-97) % Potassium (3.5-5.1) mmol/L Carbon Dioxide (22-30) mmol/L BUN (9-20) mg/dL Creatinine (0.66-1.25) mg/dL Glucose (74-99) mg/dL POC Glucose (mg/dL) 164 H (75-99) mg/dL Calcium (8.4-10.2) mg/dL AST (17-59) U/L Microbiology - Last 24 Hours (Table) 10/05/19 09:36 Gram Stain - Preliminary Foot - Left Wound Culture - Preliminary 10/05/19 09:36 Anaerobic Culture - Preliminary Foot - Left 10/05/19 02:52 Gram Stain - Preliminary Sputum Sputum Culture - Preliminary Assessment and Plan Assessment: #1 ESRD on hemodialysis MWF schedule. #2 status post cardiopulmonary arrest #3 CT head concern for anoxic brain injury #4 hyperkalemia #5 shock on levo fed Plan: #1 hemodialysis today for hyperkalemia, minimal UF. #2 ICU care.
[2019-10-06 12:09] LABS: Glucose,Whole Blood 142 mg/dL (75-99)
--- NOTE | 2019-10-06 12:09 | P.PN ---
Subjective Progress Note Date: 10/06/19 Principal diagnosis: This is 69-year-old gentleman who follows with Dr. Lorraine Gaines on an outpatient basis. His past medical history significant for end-stage renal disease, on hemodialysis, diabetes, hyperlipidemia, peripheral vascular occlusive disease and history of right below the knee amputation. He presented to the emergency department via EMS yesterday after a cardiopulmonary arrest. Apparently, after his hemodialysis session he became nauseous and subsequently collapsed on the floor and became unresponsive. The patient's family called EMS, ACLS was completed although the patient had no shockable rhythm and return of spontaneous circulation was achieved. He was intubated and placed on mechanical ventilation support and his 12-lead EKG in the emergency department showed atrial fibrillation with ST and T-wave abnormality in his lateral leads with a heart rate of 89 BPM. A chest x-ray was also completed showing pulmonary edema and he was subsequently admitted to the intensive care unit for further evaluation and treatment. On 10/06/2019 the patient was seen at his bedside in the intensive care unit by Dr. Montesinos. He remains sedated, and intubated with mechanical ventilator support. Remains hemodynamically stable, although is currently on Levothroid drip at 0.03 mcg/kg/m. Bedside telemetry showing normal sinus rhythm with a first-degree AV block heart rate 73, blood pressure is 121/54 and oxygen saturation is 97% with mechanical ventilator support. A computed tomography scan of the brain was completed this morning which showed diffuse pérez and white matter hypodensity possibly related to anoxic subacute encephalopathy. A chest x-ray was also completed which demonstrated improving changes of congestive heart failure. Objective - Vital Signs Vital signs: Vital Signs Temp 96.8 F L 10/05/19 19:58 Pulse 86 10/06/19 06:00 Resp 24 10/06/19 06:00 BP 124/58 10/05/19 19:58 Pulse Ox 97 10/06/19 06:00 Intake & Output 10/05/19 10/06/19 10/06/19 18:59 06:59 18:59 Intake Total 1079.685 747.851 169.180 Output Total 0 2002 0 Balance 1079.685 -1254.149 169.180 Intake: IV 910 710 56 Piperacillin-Tazobactam 3 100 .375 gm In Sodium Chloride 0.9% 100 ml @ 25 mls/hr IVPB Q12HR [facility] Rx #:[id number] Pressure bag 60 6 Sodium Chloride 0.9% 1, 910 550 50 000 ml @ 50 mls/hr IV . Q20H [facility] Rx#:[id number] Intake, IV Titration 169.685 37.851 113.180 Amount Heparin Sod,Pork in 0.45% 71.819 NaCl 25,000 unit In 0.45 % NaCl 1 250ml.bag @ 7.11 UNITS/KG/HR 9.998 mls/hr IV .Q24H [facility] Rx#: [id number] Insulin Regular 100 unit 70.608 37.851 24.324 In Sodium Chloride 0.9% 100 ml @ Per Protocol IV .Q0M [facility] Rx#:[id number] Norepinephrine 32 mg In 27.258 88.856 Sodium Chloride 0.9% 218 ml @ 0.05 MCG/KG/MIN 3. 296 mls/hr IV .Q24H [facility] Rx#:[id number] Output: Urine 0 2 0 Hemodialysis 2000 Other: Voiding Method Indwelling Catheter Indwelling Catheter ABP, PAP, CO, CI - Last Documented Arterial Blood Pressure 121/54 - Exam This is a 69-year-old gentleman who is resting in bed in the intensive care unit. He remains sedated and remains intubated with mechanical ventilator support. He is in no acute distress. Bedside telemetry showing normal sinus rhythm with first-degree AV block heart rate 73. - Constitutional Constitutional Comment(s): Sedated with mechanical ventilator support. - Neck Details: Neck is supple, no JVD. - Respiratory Details: Lung sounds with few scattered crackles to his bilateral bases. Respirations are symmetrical and nonlabored with mechanical ventilator support. - Cardiovascular Details: Regular rhythm and rate. S1 and S2 present, negative for S3, or gallop. Soft systolic murmur 2/6. - Gastrointestinal Gastrointestinal Comment(s): Abdomen is soft, nontender and nondistended. No organomegaly. Active bowel sounds present in all 4 abdominal quadrants. - Genitourinary Genitourinary Comment(s): Right upper arm AV fistula with good thrill and bruit. - Integumentary Integumentary Comment(s): Skin is warm and dry. No clubbing or cyanosis is present. - Neurologic Neurologic Comment(s): Sedated on propofol drip. - Allied health notes Allied health notes reviewed: nursing - Labs CBC & Chem 7: 10/06/19 04:25 10/06/19 04:25 Labs: Abnormal Lab Results - Last 24 Hours (Table) 10/05/19 10/05/19 10/05/19 Range/Units 12:11 13:10 14:27 WBC (3.8-10.6) k/uL RBC (4.30-5.90) m/uL MCV (80.0-100.0) fL Plt Count (150-450) k/uL Neutrophils # (1.3-7.7) k/uL Lymphocytes # (1.0-4.8) k/uL ABG pH (7.35-7.45) ABG pCO2 (35-45) mmHg ABG pO2 (83-108) mmHg ABG Total CO2 (19-24) mmol/L ABG O2 Saturation (94-97) % Potassium (3.5-5.1) mmol/L Carbon Dioxide (22-30) mmol/L BUN (9-20) mg/dL Creatinine (0.66-1.25) mg/dL Glucose (74-99) mg/dL POC Glucose (mg/dL) 273 H 244 H 165 H (75-99) mg/dL Calcium (8.4-10.2) mg/dL AST (17-59) U/L 10/05/19 10/05/19 10/05/19 Range/Units 16:02 17:50 19:27 WBC (3.8-10.6) k/uL RBC (4.30-5.90) m/uL MCV (80.0-100.0) fL Plt Count (150-450) k/uL Neutrophils # (1.3-7.7) k/uL Lymphocytes # (1.0-4.8) k/uL ABG pH (7.35-7.45) ABG pCO2 (35-45) mmHg ABG pO2 (83-108) mmHg ABG Total CO2 (19-24) mmol/L ABG O2 Saturation (94-97) % Potassium (3.5-5.1) mmol/L Carbon Dioxide (22-30) mmol/L BUN (9-20) mg/dL Creatinine (0.66-1.25) mg/dL Glucose (74-99) mg/dL POC Glucose (mg/dL) 141 H 122 H 198 H (75-99) mg/dL Calcium (8.4-10.2) mg/dL AST (17-59) U/L 10/05/19 10/05/19 10/06/19 Range/Units 20:23 21:01 00:11 WBC (3.8-10.6) k/uL RBC (4.30-5.90) m/uL MCV (80.0-100.0) fL Plt Count (150-450) k/uL Neutrophils # (1.3-7.7) k/uL Lymphocytes # (1.0-4.8) k/uL ABG pH (7.35-7.45) ABG pCO2 (35-45) mmHg ABG pO2 (83-108) mmHg ABG Total CO2 (19-24) mmol/L ABG O2 Saturation (94-97) % Potassium (3.5-5.1) mmol/L Carbon Dioxide (22-30) mmol/L BUN (9-20) mg/dL Creatinine (0.66-1.25) mg/dL Glucose (74-99) mg/dL POC Glucose (mg/dL) 157 H 175 H 121 H (75-99) mg/dL Calcium (8.4-10.2) mg/dL AST (17-59) U/L 10/06/19 10/06/19 10/06/19 Range/Units 02:02 04:25 04:25 WBC 19.6 H (3.8-10.6) k/uL RBC 4.10 L (4.30-5.90) m/uL MCV 102.2 H (80.0-100.0) fL Plt Count 113 L (150-450) k/uL Neutrophils # 17.7 H (1.3-7.7) k/uL Lymphocytes # 0.9 L (1.0-4.8) k/uL ABG pH (7.35-7.45) ABG pCO2 (35-45) mmHg ABG pO2 (83-108) mmHg ABG Total CO2 (19-24) mmol/L ABG O2 Saturation (94-97) % Potassium 6.0 H (3.5-5.1) mmol/L Carbon Dioxide 21 L (22-30) mmol/L BUN 31 H (9-20) mg/dL Creatinine 4.29 H (0.66-1.25) mg/dL Glucose 167 H (74-99) mg/dL POC Glucose (mg/dL) 145 H (75-99) mg/dL Calcium 8.3 L (8.4-10.2) mg/dL AST 96 H (17-59) U/L 10/06/19 10/06/19 10/06/19 Range/Units 04:30 05:48 07:05 WBC (3.8-10.6) k/uL RBC (4.30-5.90) m/uL MCV (80.0-100.0) fL Plt Count (150-450) k/uL Neutrophils # (1.3-7.7) k/uL Lymphocytes # (1.0-4.8) k/uL ABG pH (7.35-7.45) ABG pCO2 (35-45) mmHg ABG pO2 (83-108) mmHg ABG Total CO2 (19-24) mmol/L ABG O2 Saturation (94-97) % Potassium (3.5-5.1) mmol/L Carbon Dioxide (22-30) mmol/L BUN (9-20) mg/dL Creatinine (0.66-1.25) mg/dL Glucose (74-99) mg/dL POC Glucose (mg/dL) 153 H 159 H 179 H (75-99) mg/dL Calcium (8.4-10.2) mg/dL AST (17-59) U/L 10/06/19 10/06/19 10/06/19 Range/Units 07:43 08:27 09:23 WBC (3.8-10.6) k/uL RBC (4.30-5.90) m/uL MCV (80.0-100.0) fL Plt Count (150-450) k/uL Neutrophils # (1.3-7.7) k/uL Lymphocytes # (1.0-4.8) k/uL ABG pH 7.46 H (7.35-7.45) ABG pCO2 34 L (35-45) mmHg ABG pO2 119 H (83-108) mmHg ABG Total CO2 25 H (19-24) mmol/L ABG O2 Saturation 98.0 H (94-97) % Potassium (3.5-5.1) mmol/L Carbon Dioxide (22-30) mmol/L BUN (9-20) mg/dL Creatinine (0.66-1.25) mg/dL Glucose (74-99) mg/dL POC Glucose (mg/dL) 176 H 141 H (75-99) mg/dL Calcium (8.4-10.2) mg/dL AST (17-59) U/L 10/06/19 Range/Units 11:02 WBC (3.8-10.6) k/uL RBC (4.30-5.90) m/uL MCV (80.0-100.0) fL Plt Count (150-450) k/uL Neutrophils # (1.3-7.7) k/uL Lymphocytes # (1.0-4.8) k/uL ABG pH (7.35-7.45) ABG pCO2 (35-45) mmHg ABG pO2 (83-108) mmHg ABG Total CO2 (19-24) mmol/L ABG O2 Saturation (94-97) % Potassium (3.5-5.1) mmol/L Carbon Dioxide (22-30) mmol/L BUN (9-20) mg/dL Creatinine (0.66-1.25) mg/dL Glucose (74-99) mg/dL POC Glucose (mg/dL) 164 H (75-99) mg/dL Calcium (8.4-10.2) mg/dL AST (17-59) U/L Microbiology - Last 24 Hours (Table) 10/05/19 09:36 Gram Stain - Preliminary Foot - Left Wound Culture - Preliminary 10/05/19 09:36 Anaerobic Culture - Preliminary Foot - Left 10/05/19 02:52 Gram Stain - Preliminary Sputum Sputum Culture - Preliminary - Imaging and Cardiology Chest x-ray: report reviewed, image reviewed CT Scan - head: report reviewed Assessment and Plan Assessment: 1. Status post cardiopulmonary arrest, patient did not have a shockable rhythm 2. Acute hypoxic and hypercapnic respiratory failure secondary to cardiac arrest 3. Sepsis, possible septic shock, Samra source likely the left foot, currently on Zosyn and vancomycin 4. End-stage renal disease, on hemodialysis 5. Anion gap metabolic acidosis, multifactorial, secondary to renal failure, hypotension and strongly suspect sepsis and septic shock, sputum sample showing presumptive staph aureus 6. Chronic persistent atrial fibrillation 7. Diabetic nephropathy and diabetic neuropathy 8. Peripheral vascular occlusive disease and previous right below the knee amputation 9. Left foot diabetic ulcer, infectious disease following 10. Strongly suspect anoxic brain injury secondary to cardiac arrest and prolonged downtime, computed tomography scan of the brain shows pérez and white matter hypodensity which could possibly relate to anoxic subacute encephalopathy Plan: 1. Mechanical ventilator support per pulmonary medicine/critical care recommendations. 2. Continue hemodynamic support, weaned norepinephrine drip as appropriate. 3. 2-D echocardiogram, evaluate LV function. 4. Continue antibiotics managed by infectious disease for presumptive sepsis and septic shock. 5. GI and DVT prophylaxis. 6. Hemodialysis management recommendations per nephrology. 7. Suspected anoxic brain injury due to cardiopulmonary arrest and prolonged downtime, recommendations and management per neurology. 8. Patient remains critically ill, condition remains extremely poor and guarded. 9. More recommendations to follow based on patient's clinical course. Nurse practitioner note has been reviewed, I agree with a documented findings and plan of care. Patient was seen and examined. Time with Patient: Less than 30
--- NOTE | 2019-10-06 13:13 | P.PN ---
Subjective Progress Note Date: 10/06/19 Principal diagnosis: Cardiac arrest This is a 69-year-old white male with history of end-stage renal disease, on hemodialysis. Patient is also known to have history of diabetes, peripheral vessel occlusive disease and previous right below-knee amputation. Patient had a sudden witnessed arrest at home yesterday. CPR was started by family members. EMS arrived to the scene within 10 minutes. Patient was apparently unresponsive, CPR was continued by EMS. Did not have initially shockable rhythm Patient was brought into the ER and CPR was in progress. Apparently the down time all in all was about 20 minutes. Patient was coded according to the ACLS protocol in the ER, and he was intubated by the ER physician. Patient developed some trauma from endotracheal intubation, and he developed some bleeding around the area of the endotracheal tube. Hence he was initially on heparin because of the bleeding around the endotracheal tube, heparin was discontinued and present ly on hold. Patient is now in the ICU, he is mechanically ventilated. He is on assist control rate of 24 tidal volume is 500 FiO2 is 60% and I cut it down to 50%. He is also on a PEEP of 5. ABG this morning showed a pO2 of 96 pCO2 of 41 pH of 7.33. Patient is unresponsive to any stimuli. 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 Chest x-ray showed evidence of fluid overload, interstitial edema, and small to moderate right-sided pleural effusion. Patient was already seen by nephrology, and the plan is to hemodialyze the patient/ultrafiltrate the patient and the goal is to remove 2-3 L of fluids. Patient was also seen by cardiology. Home and based on his overall clinical status, no plans to perform any cardiac catheterization at this point. Patient is also here to be seen by neurology for evaluation of possible anoxic brain injury. In the meantime I have recommended antibiotics in the form of cefepime and vancomycin, patient has evidence of deep ulcer in the left foot/plantar aspect. And has been doctoring at the wound care center. I have also recommended starting the patient Zosyn and vancomycin empirically. Lactic acid on presentation was high at 6.9. Fluids were given initially, and repeat lactic acid is pending. Patient was reevaluated today on 10/06/19, patient remains in the ICU, remains on assist control mode of mechanical ventilation, rate of 24, FiO2 is 50%, PEEP is 5 and tidal volume is 500. However after reviewing his ABG, his ventilator settings were changed to 450 tidal volume, FiO2 went down to 45% rate was increased to 28 flow rate was increased to 70. Patient was also placed on Decadron 4 mg a push every 6 hours mostly because of his abnormal CT of the brain which was done yesterday. Patient remains on norepinephrine at 0.02 mcg/kg/m. His IV fluids at 50 ML per hour in the form of 0.9 normal saline. His symptoms at 6 units per hour. Chest x-ray showed improvement in his interstitial edema, however continues to have opacity in the right lower lobe suggestive of underlying pneumonia/aspiration pneumonia. WBC count is 19.6 hemoglobin is 13.3 ABG showed a pO2 of 119 pCO2 of 34 pH of 7.46 renal profile showed BUN of 31 creatinine of 4.29, slightly improved compared to the last 2 days. 2-D echo is pending. Patient remains on antibiotics for presumptive aspiration. Remains on GI and DVT prophylaxis. And the main concern I have at this point is the fact that the patient clearly sustained severe anoxic brain injury, being followed by neurology, and the EEG was ordered. In the meantime we'll continue Decadron. Objective - Vital Signs Vital signs: Vital Signs Temp 98.9 F 10/06/19 12:04 Pulse 72 10/06/19 12:04 Resp 2 L 10/06/19 12:04 BP 124/58 10/05/19 19:58 Pulse Ox 97 10/06/19 12:04 Intake & Output 10/05/19 10/06/19 10/06/19 18:59 06:59 18:59 Intake Total 1079.685 747.851 988.801 Output Total 0 2002 10 Balance 1079.685 -1254.149 978.801 Weight 145 kg Intake: IV 910 710 871 Piperacillin-Tazobactam 3 100 100 .375 gm In Sodium Chloride 0.9% 100 ml @ 25 mls/hr IVPB Q12HR [facility] Rx #:[id number] Pressure bag 60 21 Sodium Chloride 0.9% 1, 910 550 250 000 ml @ 50 mls/hr IV . Q20H [facility] Rx#:[id number] Vancomycin 2,000 mg In 500 Sodium Chloride 0.9% 500 ml 500 ml @ 167 mls/hr IVPB ONCE [facility] Rx#: [id number] Intake, IV Titration 169.685 37.851 117.801 Amount Heparin Sod,Pork in 0.45% 71.819 NaCl 25,000 unit In 0.45 % NaCl 1 250ml.bag @ 7.11 UNITS/KG/HR 9.998 mls/hr IV .Q24H [facility] Rx#: [id number] Insulin Regular 100 unit 70.608 37.851 28.945 In Sodium Chloride 0.9% 100 ml @ Per Protocol IV .Q0M [facility] Rx#:[id number] Norepinephrine 32 mg In 27.258 88.856 Sodium Chloride 0.9% 218 ml @ 0.05 MCG/KG/MIN 3. 296 mls/hr IV .Q24H [facility] Rx#:[id number] Output: Urine 0 2 10 Hemodialysis 1999 Other: Voiding Method Indwelling Catheter Indwelling Catheter ABP, PAP, CO, CI - Last Documented Arterial Blood Pressure 146/65 - Exam GENERAL: Revealed 69-year-old white male, obese, intubated, in no distress. R emains comatose. Head: Atraumatic, normocephalic. Endotracheal tube and nasogastric tube are intact. HEENT: Pupils are round, sluggishly reactive to light, no corneal reflex was noted, no icterus, dry mucous membranes, endotracheal tube is intact. CARDIOVASCULAR: Regular rhythm. no S3 gallop, 2/6 systolic murmur thought the precordium. PULMONARY: Symmetrical chest expansion, crackles at the bases bilaterally. Rhonchi noted bilaterally. ABDOMEN: Obese, Soft, nontender, nondistended, normoactive bowel sounds. No palpable organomegaly. MUSCULOSKELETAL: No joint swelling or deformity. EXTREMITIES: Trace of bipedal edema, no clubbing, no cyanosis, there is a right below-knee amputation, and there is a deep necrotic ulcer in the plantar aspect of the left foot. NEUROLOGICAL: Absent gag reflex, pupillary reflex corneal and conjunctival reflexes. SKIN: Large deep necrotic ulcer noted in the left plantar aspect of the left foot. AV fistula in right arm. - Labs CBC & Chem 7: 10/06/19 04:25 10/06/19 04:25 Labs: Abnormal Lab Results - Last 24 Hours (Table) 10/05/19 10/05/19 10/05/19 Range/Units 13:10 14:27 16:02 WBC (3.8-10.6) k/uL RBC (4.30-5.90) m/uL MCV (80.0-100.0) fL Plt Count (150-450) k/uL Neutrophils # (1.3-7.7) k/uL Lymphocytes # (1.0-4.8) k/uL ABG pH (7.35-7.45) ABG pCO2 (35-45) mmHg ABG pO2 (83-108) mmHg ABG Total CO2 (19-24) mmol/L ABG O2 Saturation (94-97) % Potassium (3.5-5.1) mmol/L Carbon Dioxide (22-30) mmol/L BUN (9-20) mg/dL Creatinine (0.66-1.25) mg/dL Glucose (74-99) mg/dL POC Glucose (mg/dL) 244 H 165 H 141 H (75-99) mg/dL Calcium (8.4-10.2) mg/dL AST (17-59) U/L 10/05/19 10/05/19 10/05/19 Range/Units 17:50 19:27 20:23 WBC (3.8-10.6) k/uL RBC (4.30-5.90) m/uL MCV (80.0-100.0) fL Plt Count (150-450) k/uL Neutrophils # (1.3-7.7) k/uL Lymphocytes # (1.0-4.8) k/uL ABG pH (7.35-7.45) ABG pCO2 (35-45) mmHg ABG pO2 (83-108) mmHg ABG Total CO2 (19-24) mmol/L ABG O2 Saturation (94-97) % Potassium (3.5-5.1) mmol/L Carbon Dioxide (22-30) mmol/L BUN (9-20) mg/dL Creatinine (0.66-1.25) mg/dL Glucose (74-99) mg/dL POC Glucose (mg/dL) 122 H 198 H 157 H (75-99) mg/dL Calcium (8.4-10.2) mg/dL AST (17-59) U/L 10/05/19 10/06/19 10/06/19 Range/Units 21:01 00:11 02:02 WBC (3.8-10.6) k/uL RBC (4.30-5.90) m/uL MCV (80.0-100.0) fL Plt Count (150-450) k/uL Neutrophils # (1.3-7.7) k/uL Lymphocytes # (1.0-4.8) k/uL ABG pH (7.35-7.45) ABG pCO2 (35-45) mmHg ABG pO2 (83-108) mmHg ABG Total CO2 (19-24) mmol/L ABG O2 Saturation (94-97) % Potassium (3.5-5.1) mmol/L Carbon Dioxide (22-30) mmol/L BUN (9-20) mg/dL Creatinine (0.66-1.25) mg/dL Glucose (74-99) mg/dL POC Glucose (mg/dL) 175 H 121 H 145 H (75-99) mg/dL Calcium (8.4-10.2) mg/dL AST (17-59) U/L 10/06/19 10/06/19 10/06/19 Range/Units 04:25 04:25 04:30 WBC 19.6 H (3.8-10.6) k/uL RBC 4.10 L (4.30-5.90) m/uL MCV 102.2 H (80.0-100.0) fL Plt Count 113 L (150-450) k/uL Neutrophils # 17.7 H (1.3-7.7) k/uL Lymphocytes # 0.9 L (1.0-4.8) k/uL ABG pH (7.35-7.45) ABG pCO2 (35-45) mmHg ABG pO2 (83-108) mmHg ABG Total CO2 (19-24) mmol/L ABG O2 Saturation (94-97) % Potassium 6.0 H (3.5-5.1) mmol/L Carbon Dioxide 21 L (22-30) mmol/L BUN 31 H (9-20) mg/dL Creatinine 4.29 H (0.66-1.25) mg/dL Glucose 167 H (74-99) mg/dL POC Glucose (mg/dL) 153 H (75-99) mg/dL Calcium 8.3 L (8.4-10.2) mg/dL AST 96 H (17-59) U/L 10/06/19 10/06/19 10/06/19 Range/Units 05:48 07:05 07:43 WBC (3.8-10.6) k/uL RBC (4.30-5.90) m/uL MCV (80.0-100.0) fL Plt Count (150-450) k/uL Neutrophils # (1.3-7.7) k/uL Lymphocytes # (1.0-4.8) k/uL ABG pH 7.46 H (7.35-7.45) ABG pCO2 34 L (35-45) mmHg ABG pO2 119 H (83-108) mmHg ABG Total CO2 25 H (19-24) mmol/L ABG O2 Saturation 98.0 H (94-97) % Potassium (3.5-5.1) mmol/L Carbon Dioxide (22-30) mmol/L BUN (9-20) mg/dL Creatinine (0.66-1.25) mg/dL Glucose (74-99) mg/dL POC Glucose (mg/dL) 159 H 179 H (75-99) mg/dL Calcium (8.4-10.2) mg/dL AST (17-59) U/L 10/06/19 10/06/19 10/06/19 Range/Units 08:27 09:23 11:02 WBC (3.8-10.6) k/uL RBC (4.30-5.90) m/uL MCV (80.0-100.0) fL Plt Count (150-450) k/uL Neutrophils # (1.3-7.7) k/uL Lymphocytes # (1.0-4.8) k/uL ABG pH (7.35-7.45) ABG pCO2 (35-45) mmHg ABG pO2 (83-108) mmHg ABG Total CO2 (19-24) mmol/L ABG O2 Saturation (94-97) % Potassium (3.5-5.1) mmol/L Carbon Dioxide (22-30) mmol/L BUN (9-20) mg/dL Creatinine (0.66-1.25) mg/dL Glucose (74-99) mg/dL POC Glucose (mg/dL) 176 H 141 H 164 H (75-99) mg/dL Calcium (8.4-10.2) mg/dL AST (17-59) U/L 10/06/19 Range/Units 12:08 WBC (3.8-10.6) k/uL RBC (4.30-5.90) m/uL MCV (80.0-100.0) fL Plt Count (150-450) k/uL Neutrophils # (1.3-7.7) k/uL Lymphocytes # (1.0-4.8) k/uL ABG pH (7.35-7.45) ABG pCO2 (35-45) mmHg ABG pO2 (83-108) mmHg ABG Total CO2 (19-24) mmol/L ABG O2 Saturation (94-97) % Potassium (3.5-5.1) mmol/L Carbon Dioxide (22-30) mmol/L BUN (9-20) mg/dL Creatinine (0.66-1.25) mg/dL Glucose (74-99) mg/dL POC Glucose (mg/dL) 142 H (75-99) mg/dL Calcium (8.4-10.2) mg/dL AST (17-59) U/L Microbiology - Last 24 Hours (Table) 10/05/19 02:52 Gram Stain - Preliminary Sputum Sputum Culture - Preliminary Presumptive Staph aureus 10/05/19 09:36 Gram Stain - Preliminary Foot - Left Wound Culture - Preliminary 10/05/19 09:36 Anaerobic Culture - Preliminary Foot - Left Assessment and Plan Assessment: Impression: Acute hypoxic and hypercapnic respiratory failure secondary to cardiac arrest. Suspect acute ST elevation myocardial infarction. Sepsis, possible septic shock, primary source likely the left foot, patient will be empirically treated with Zosyn and vancomycin. End-stage renal disease, on hemodialysis. Anion gap metabolic acidosis, multifactorial, secondary to renal failure, hypotension, and strongly suspect sepsis and septic shock. Chronic atrial fibrillation. Diabetic nephropathy and diabetic neuropathy Peripheral vessel occlusive disease and previous right below-knee amputation. Left foot diabetic ulcer, will recommend infectious disease consultation in the meantime we'll treat with vancomycin and Zosyn. Strongly suspect anoxic brain injury secondary to cardiac arrest and prolonged downtime. Recommendation: Continue ventilatory support. Continue hemodynamic support. Hemodialysis/ultrafiltration today. Antibiotics, continue Zosyn and vancomycin empirically. GI and DVT prophylaxis. Insulin for diabetes control. Decadron was started for abnormal CT of the brain Anticoagulation, as per cardiology. Based on the neurological recommendation, we will likely discuss with the family to consider comfort care measures or terminal weaning depending on neurological outcome. Patient is obviously critically ill,is extremely poor and guarded, we will continue to follow. Critical care time is 33 minutes. Time with Patient: Greater than 30
[2019-10-06 13:15] LABS: Glucose,Whole Blood 174 mg/dL (75-99)
[2019-10-06 13:41] VITALS: BMI 45.8
[2019-10-06 14:02] LABS: Glucose,Whole Blood 190 mg/dL (75-99)
--- NOTE | 2019-10-06 15:18 | EEG ---
ELECTROENCEPHALOGRAM REPORT DATE OF SERVICE: 10/06/2019 This is an inpatient EEG performed in the ICU on a 69-year-old gentleman with complicated medical history of status post arrest, poorly-controlled diabetes on hemodialysis for end-stage renal disease. Over the interim of his admission he now shows evidence of multiple areas of stroke with cerebral edema. This is a followup EEG. TECHNICAL REPORT: This is an inpatient EEG performed on the [employer] EEG monitor with electrodes placed according to the International 10-20 system and a single EKG channel. Simultaneous video EEG monitoring was performed. Photic stimulation was performed. This EEG was reviewed in longitudinal bipolar, common average and referential transverse montages. The recording begins with severe suppression of the background with minimal reactivity. Frequent EMG artifact is noted intermittently existing with mouth twitching and occasionally eye fluttering consistent with electrographic and clinical seizure activity. This activity correlates with both rhythmic and semi rhythmic low amplitude sharp and slow wave discharges that are noted bifrontally occurring between 2 up to 8 seconds. Excessive generalized beta activity superimposed over the background. Photic stimulation was performed at various flash frequencies and failed to elicit consistent driving response. IMPRESSION: This is a severely abnormal EEG consistent with generalized diffuse cerebral dysfunction. The background is minimally reactive. There is now the appearance of intermittent electrographic seizures and clinical seizures emanating from the bifrontal head region. A verbal report of this was provided to the ICU nurse and medications reviewed. Serial EEGs are recommended and if clinically indicated, a more prolonged overnight study. MAGUI / JESICAN: [id number] / MICHAEL
[2019-10-06 15:19] LABS: Glucose,Whole Blood 154 mg/dL (75-99)
--- NOTE | 2019-10-06 15:20 | P.PN ---
Subjective 69-year-old male with end-stage renal disease on hemodialysis collapsed at home and patient was brought into ER after he was resuscitated for about 6 minutes patient had pulseless electrical activity. Patient was subsequently intubated in the ER and patient airway although was maintained during transportation. Patient doesn't have any fevers patient doesn't make much urine hemodialysis dependent. Patient chest x-ray did not show any pneumonic process but did show pulmonary edema. Patient has both hypercapnic and hypoxic respiratory failure. Patient has gag reflex that is SENT pupils are not reacting to light and neurology will evaluate the patient for anoxic brain injury. Patient has significant lactic acidosis with mildly elevated troponin and patient has a decubitus ulcer which can be infected. 10/06/2019 Patient remains intubated with FiO2 of 45% at a volume of 450 PEEP of 5 cm ventilator rate of 28 and patient is not breathing over the ventilator. Patient remains on a small dose of norepinephrine. Remains on IV fluids kidney function and potassium continue to get worse. Patient had a CAT scan of the head which showed significant anoxic brain injury prognosis extremely poor there is significant interstitial edema on the chest x-ray with the right lower lobe was pasty and possibly of aspiration pneumonia sputum cultures are positive for MRSA patient remains on vancomycin. Had lengthy discussion with neurology patient appears to have mostly reversible brain injury leading to cerebral edema and patient is presently on Decadron because of kidney dysfunction tolerate mannitol discussed the family regarding comfort care terminal wean. Review of systems: Unable to obtain due to his clinical condition All inpatient medications were reviewed and appropriate changes in these medications as dictated in the interval history and assessment and plan. Objective - Vital Signs Vital signs: Vital Signs Temp 98.9 F 10/06/19 12:04 Pulse 74 10/06/19 13:55 Resp 18 10/06/19 13:55 BP 124/58 10/05/19 19:58 Pulse Ox 97 10/06/19 13:55 Intake & Output 10/05/19 10/06/19 10/06/19 18:59 06:59 18:59 Intake Total 1079.685 724.571 5123.401 Output Total 0 2002 03 Balance 1079.685 -6333.240 2410.401 Weight 145 kg 145 kg Intake: IV 910 710 977 Piperacillin-Tazobactam 3 100 100 .375 gm In Sodium Chloride 0.9% 100 ml @ 25 mls/hr IVPB Q12HR [facility] Rx #:[id number] Pressure bag 60 27 Sodium Chloride 0.9% 1, 910 550 350 000 ml @ 50 mls/hr IV . Q20H [facility] Rx#:[id number] Vancomycin 2,000 mg In 500 Sodium Chloride 0.9% 500 ml 500 ml @ 167 mls/hr IVPB ONCE ONE Rx#: [id number] Intake, IV Titration 169.685 37.851 125.401 Amount Heparin Sod,Pork in 0.45% 71.819 NaCl 25,000 unit In 0.45 % NaCl 1 250ml.bag @ 7.11 UNITS/KG/HR 9.998 mls/hr IV .Q24H [facility] Rx#: [id number] Insulin Regular 100 unit 70.608 37.851 36.545 In Sodium Chloride 0.9% 100 ml @ Per Protocol IV .Q0M [facility] Rx#:[id number] Norepinephrine 32 mg In 27.258 88.856 Sodium Chloride 0.9% 218 ml @ 0.05 MCG/KG/MIN 3. 296 mls/hr IV .Q24H [facility] Rx#:[id number] Output: Urine 0 2 10 Hemodialysis 1999 Other: Voiding Method Indwelling Catheter Indwelling Catheter Indwelling Catheter ABP, PAP, CO, CI - Last Documented Arterial Blood Pressure 118/68 - Exam PHYSICAL EXAMINATION: GENERAL: Obese intubated HEENT: Pupils are nonreactive to light absent gag reflex. EOMI. No scleral icterus. No conjunctival pallor. Normocephalic, atraumatic. No pharyngeal erythema. No thyromegaly. CARDIOVASCULAR: S1 and S2 present. No murmurs, rubs, or gallops. PULMONARY: Chest is clear to auscultation, no wheezing or crackles. ABDOMEN: Soft, nontender, nondistended, normoactive bowel sounds. No palpable organomegaly. MUSCULOSKELETAL: No joint swelling or deformity. EXTREMITIES: No cyanosis, clubbing, or pedal edema. NEUROLOGICAL: Absent gag reflex, pupillary reflex corneal and conjunctival reflexes. SKIN: Decubitus ulcers please refer to nursing documentation for staging appears to be infected - Labs CBC & Chem 7: 10/06/19 04:25 10/06/19 04:25 Labs: Abnormal Lab Results - Last 24 Hours (Table) 10/05/19 10/05/1920 Range/Units 16:02 17:50 19:27 WBC (3.8-10.6) k/uL RBC (4.30-5.90) m/uL MCV (80.0-100.0) fL Plt Count (150-450) k/uL Neutrophils # (1.3-7.7) k/uL Lymphocytes # (1.0-4.8) k/uL ABG pH (7.35-7.45) ABG pCO2 (35-45) mmHg ABG pO2 (83-108) mmHg ABG Total CO2 (19-24) mmol/L ABG O2 Saturation (94-97) % Potassium (3.5-5.1) mmol/L Carbon Dioxide (22-30) mmol/L BUN (9-20) mg/dL Creatinine (0.66-1.25) mg/dL Glucose (74-99) mg/dL POC Glucose (mg/dL) 141 H 122 H 198 H (75-99) mg/dL Calcium (8.4-10.2) mg/dL AST (17-59) U/L 10/05/19 10/05/19 10/06/19 Range/Units 20:23 21:01 00:11 WBC (3.8-10.6) k/uL RBC (4.30-5.90) m/uL MCV (80.0-100.0) fL Plt Count (150-450) k/uL Neutrophils # (1.3-7.7) k/uL Lymphocytes # (1.0-4.8) k/uL ABG pH (7.35-7.45) ABG pCO2 (35-45) mmHg ABG pO2 (83-108) mmHg ABG Total CO2 (19-24) mmol/L ABG O2 Saturation (94-97) % Potassium (3.5-5.1) mmol/L Carbon Dioxide (22-30) mmol/L BUN (9-20) mg/dL Creatinine (0.66-1.25) mg/dL Glucose (74-99) mg/dL POC Glucose (mg/dL) 157 H 175 H 121 H (75-99) mg/dL Calcium (8.4-10.2) mg/dL AST (17-59) U/L 05/07/2610/06/19 10/06/19 Range/Units 02:02 04:25 04:25 WBC 19.6 H (3.8-10.6) k/uL RBC 4.10 L (4.30-5.90) m/uL MCV 102.2 H (80.0-100.0) fL Plt Count 113 L (150-450) k/uL Neutrophils # 17.7 H (1.3-7.7) k/uL Lymphocytes # 0.9 L (1.0-4.8) k/uL ABG pH (7.35-7.45) ABG pCO2 (35-45) mmHg ABG pO2 (83-108) mmHg ABG Total CO2 (19-24) mmol/L ABG O2 Saturation (94-97) % Potassium 6.0 H (3.5-5.1) mmol/L Carbon Dioxide 21 L (22-30) mmol/L BUN 31 H (9-20) mg/dL Creatinine 4.29 H (0.66-1.25) mg/dL Glucose 167 H (74-99) mg/dL POC Glucose (mg/dL) 145 H (75-99) mg/dL Calcium 8.3 L (8.4-10.2) mg/dL AST 96 H (17-59) U/L 10/06/19 10/06/19 10/06/19 Range/Units 04:30 05:48 07:05 WBC (3.8-10.6) k/uL RBC (4.30-5.90) m/uL MCV (80.0-100.0) fL Plt Count (150-450) k/uL Neutrophils # (1.3-7.7) k/uL Lymphocytes # (1.0-4.8) k/uL ABG pH (7.35-7.45) ABG pCO2 (35-45) mmHg ABG pO2 (83-108) mmHg ABG Total CO2 (19-24) mmol/L ABG O2 Saturation (94-97) % Potassium (3.5-5.1) mmol/L Carbon Dioxide (22-30) mmol/L BUN (9-20) mg/dL Creatinine (0.66-1.25) mg/dL Glucose (74-99) mg/dL POC Glucose (mg/dL) 153 H 159 H 179 H (75-99) mg/dL Calcium (8.4-10.2) mg/dL AST (17-59) U/L 10/06/19 10/06/19 10/06/19 Range/Units 07:43 08:27 09:23 WBC (3.8-10.6) k/uL RBC (4.30-5.90) m/uL MCV (80.0-100.0) fL Plt Count (150-450) k/uL Neutrophils # (1.3-7.7) k/uL Lymphocytes # (1.0-4.8) k/uL ABG pH 7.46 H (7.35-7.45) ABG pCO2 34 L (35-45) mmHg ABG pO2 119 H (83-108) mmHg ABG Total CO2 25 H (19-24) mmol/L ABG O2 Saturation 98.0 H (94-97) % Potassium (3.5-5.1) mmol/L Carbon Dioxide (22-30) mmol/L BUN (9-20) mg/dL Creatinine (0.66-1.25) mg/dL Glucose (74-99) mg/dL POC Glucose (mg/dL) 176 H 141 H (75-99) mg/dL Calcium (8.4-10.2) mg/dL AST (17-59) U/L 10/06/19 10/06/19 10/06/19 Range/Units 11:02 12:08 13:13 WBC (3.8-10.6) k/uL RBC (4.30-5.90) m/uL MCV (80.0-100.0) fL Plt Count (150-450) k/uL Neutrophils # (1.3-7.7) k/uL Lymphocytes # (1.0-4.8) k/uL ABG pH (7.35-7.45) ABG pCO2 (35-45) mmHg ABG pO2 (83-108) mmHg ABG Total CO2 (19-24) mmol/L ABG O2 Saturation (94-97) % Potassium (3.5-5.1) mmol/L Carbon Dioxide (22-30) mmol/L BUN (9-20) mg/dL Creatinine (0.66-1.25) mg/dL Glucose (74-99) mg/dL POC Glucose (mg/dL) 164 H 142 H 174 H (75-99) mg/dL Calcium (8.4-10.2) mg/dL AST (17-59) U/L 10/06/19 Range/Units 14:01 WBC (3.8-10.6) k/uL RBC (4.30-5.90) m/uL MCV (80.0-100.0) fL Plt Count (150-450) k/uL Neutrophils # (1.3-7.7) k/uL Lymphocytes # (1.0-4.8) k/uL ABG pH (7.35-7.45) ABG pCO2 (35-45) mmHg ABG pO2 (83-108) mmHg ABG Total CO2 (19-24) mmol/L ABG O2 Saturation (94-97) % Potassium (3.5-5.1) mmol/L Carbon Dioxide (22-30) mmol/L BUN (9-20) mg/dL Creatinine (0.66-1.25) mg/dL Glucose (74-99) mg/dL POC Glucose (mg/dL) 190 H (75-99) mg/dL Calcium (8.4-10.2) mg/dL AST (17-59) U/L Microbiology - Last 24 Hours (Table) 10/05/19 11:13 Blood Culture - Preliminary Blood No Growth after 24 hours 10/05/19 02:52 Gram Stain - Preliminary Sputum Sputum Culture - Preliminary Presumptive Staph aureus 10/05/19 09:36 Gram Stain - Preliminary Foot - Left Wound Culture - Preliminary 10/05/19 09:36 Anaerobic Culture - Preliminary Foot - Left Assessment and Plan Plan: Acute the hypoxic and hypercapnic respiratory failure status post cardiac pulmonary arrest acute hypoxic respiratory failure may be related to pulmonary edema patient is Tuesday hemodialysis nephrology will evaluated the patient and decide on hemodialysis, hypercapnic respiratory failure may be related to COPD exacerbation unknown whether patient ever smoked. Can be related to cardiology pulmonary arrest, patient is presently ventilator depe ndent -Sepsis and septic shock, patient is receiving IV fluids and is also on norepinephrine for maintenance of blood pressure wound cultures were obtained wound may be the source of infection no other sources clearly evident at this time patient is on broad-spectrum antibiotics and vancomycin and Zosyn and blood cultures will be obtained as well as infectious disease will evaluate the patient -leukocytosis due to assessment #2 -Possible significant anoxic brain injury neurology evaluated the patient and CT showed evidence of significant anoxic brain injury EEG is being obtained patient prognosis is poor patient appears to have mostly reversible brain injury with edema -Cardio pulmonary arrest may be secondary to sepsis or pulmonary edema -End-stage renal disease hemodialysis dependent -Hyperkalemia secondary to renal failure -Type 2 diabetes mellitus uncontrolled blood sugars patient is on IV insulin drip at this time. I to lactic acidosis secondary to sepsis and cardio pulmonary arrest and decreased organ perfusion and multiorgan dysfunction -Troponin elevation probably secondary to cardio pulmonary arrest. Urology will evaluate the patient patient is having bleeding from the oral cavity because of which patient is not on anti-correlation patient usually takes Eliquis for atri al fibrillation -Hyperlipidemia Have intravascular disease -Diabetic peripheral neuropathy -Diabetic nephropathy -History of atrial fibrillation presently rate controlled
[2019-10-06 16:23] LABS: Glucose,Whole Blood 126 mg/dL (75-99)
[2019-10-06 16:51] VITALS: BP 114/53; PULSE 71; RESP 28; TEMP 97
[2019-10-06 16:58] LABS: Glucose,Whole Blood 128 mg/dL (75-99)
[2019-10-06] MEDS ORDERED: MORPHINE SULFATE 4 MG/ML SYRINGE IV PRN (17:43)
[2019-10-06] MEDS ORDERED: LORazepam 2 MG/ML INJ IV PRN (17:43)
[2019-10-06] MEDS: NOREPINEPHRINE 32 MG in SODIUM CHLORIDE 0.9% 218 ML IV SCH (17:48)
[2019-10-06] MEDS ORDERED: MORPHINE SULFATE (100 MG/2 ML) 100 MG in SODIUM CHLORIDE 0.9% 100 ML IV SCH (18:00)
--- NOTE | 2019-10-06 18:55 | PN ---
PROGRESS NOTE DATE OF SERVICE: 10/06/2019 REASON FOR FOLLOWUP: 1. Left diabetic foot ulcer with cellulitis. 2. Possible aspiration pneumonitis. INTERVAL HISTORY: The patient is currently afebrile and the patient is unresponsive. Remains to be on the vent. No other change has been reported. PHYSICAL EXAMINATION: Blood pressure 118/60 with a pulse of 74. Temperature 98.9. He is 97% on 40% FiO2. General description is elderly male intubated on the vent. Respiratory system: Unlabored breathing. Decreased breath sounds in the base, with no wheeze. Heart S1, S2. Regular rate and rhythm. Abdomen soft, no tenderness. LABS: Hemoglobin is 13.8, white count 19.6, BUN of 31, creatinine 4.294. Sputum is Staph aureus. Wound culture pending. Blood culture so far negative. DIAGNOSTIC IMPRESSION AND PLAN: Patient with sepsis with acute respiratory failure which is likely multifactorial in this patient who did have cardiac arrest x3. Possible component of aspiration pneumonitis. Sputum showing Staph aureus. Also has left diabetic foot ulcer with cellulitis. The patient is broadly covered with vancomycin and Zosyn to continue and monitor clinical course closely. MMODL / IJN: [id number] /
--- NOTE | 2019-10-07 07:50 | ECHOF ---
Referral Reason:assess LV function MEASUREMENTS -------- HEIGHT: 177.8 cm WEIGHT: 140.6 kg BP: 146/65 IVSd: 1.9 cm (0.6 - 1.1) LVIDd: 4.4 cm (3.9 - 5.3) LVPWd: 2.2 cm (0.6 - 1.1) IVSs: 2.3 cm LVIDs: 2.8 cm LVPWs: 2.2 cm LAESV Index (A-L): 19.85 ml/m Ao Diam: 3.5 cm (2.0 - 3.7) AV Cusp: 1.7 cm (1.5 - 2.6) MV EXCURSION: 21.020 mm (> 18.000) MV EF SLOPE: 125 mm/s (70 - 150) EPSS: 0.4 cm MV E Kirill: 1.19 m/s MV DecT: 208 ms MV A Kirill: 0.58 m/s MV E/A Ratio: 2.05 RAP: 5.00 mmHg RVSP: 20.60 mmHg FINDINGS -------- Sinus rhythm. This was a technically difficult study with suboptimal views. Morbid Obesity Pt. on a vent. The left ventricular size is normal. There is severe concentric left ventricular hypertrophy. Ove rall left ventricular systolic function is normal with, an EF between 55 - 60 %. The diastolic fill ing pattern is normal for the age of the patient 14.79. The RV was not well visualized. Normal LA size by volume 22+/-6 ml/m2. The right atrium was not well visualized. 5.0mg of Lumason was utilized for enhancement of images Interatrial and interventricular septum intact. There is no evidence of aortic regurgitation. There is no evidence of aortic stenosis. Mild mitral regurgitation is present. Mild tricuspid regurgitation present. There is no evidence of pulmonary hypertension. The right v entricular systolic pressure, as measured by Doppler, is 20.60mmHg. There is no pulmonic regurgitation present. The aortic root size is normal. IVC Not well visulized. There is no pericardial effusion. CONCLUSIONS -------- 1. Sinus rhythm. 2. This was a technically difficult study with suboptimal views. 3. Morbid Obesity 4. Pt. on a vent. 5. The left ventricular size is normal. 6. There is severe concentric left ventricular hypertrophy. 7. Overall left ventricular systolic function is normal with, an EF between 55 - 60 %. 8. The diastolic filling pattern is normal for the age of the patient 14.79 9. The RV was not well visualized. 10. Normal LA size by volume 22+/-6 ml/m2. 11. The right atrium was not well visualized. 12. 5.0mg of Lumason was utilized for enhancement of images 13. Interatrial and interventricular septum intact. 14. There is no evidence of aortic regurgitation. 15. There is no evidence of aortic stenosis. 16. Mild mitral regurgitation is present. 17. Mild tricuspid regurgitation present. 18. There is no evidence of pulmonary hypertension. 19. The right ventricular systolic pressure, as measured by Doppler, is 20.60mmHg. 20. There is no pulmonic regurgitation present. 21. The aortic root size is normal. 22. IVC Not well visulized. 23. There is no pericardial effusion. STAFF RADIATION THERAPIST: Clau Townsend RDCS
--- NOTE | 2019-10-08 12:28 | P.DS ---
Providers Date of admission: 10/05/19 00:51 Expected date of discharge: 10/06/19 Attending physician: Noemi Butsos Consults: 10/05/19 00:46 Consult Physician Routine Consulting Provider: Vasquez Samayoa Consult Reason/Comments: Dialysis patient Do you want consulting provider notified?: Yes Consult Physician Stat Consulting Provider: Maty Montesinos Consult Reason/Comments: Cardiopulmonary arrest patient Do you want consulting provider notified?: Already Contacted Consult Physician Stat Consulting Provider: Sofi Hsu Consult Reason/Comments: Ventilated Patient Do you want consulting provider notified?: Already Contacted 10/05/19 08:16 Consult Physician Urgent Consulting Provider: Kristin Schmitz Consult Reason/Comments: anoxic brain injury Do you want consulting provider notified?: Yes 10/05/19 08:24 Consult Physician Routine Consulting Provider: Teresa Dawkins Consult Reason/Comments: sepsis, wounds, cardiac arrest Do you want consulting provider notified?: Yes Primary care physician: Shanon Gaines Hospital Course: Patient was terminally extubated after discussion with the family patient has severe anoxic brain injury and the chance of reasonable recovery is almost close to nill. Patient after extubation . please refer to nursing documentation for further details time of . Patient Condition at Discharge: Critical Plan - Discharge Summary New Discharge Prescriptions: No Action Insulin Detemir (Levemir) [Levemir] 50 unit SQ PC-SUPPER Calcium Acetate [PhosLo] 2,001 mg PO AC-BID Midodrine [ProAmatine] 5 mg PO MOWEFR PRN PRN Reason: LOW BLOOD PRESSURE DIALYSIS Lidocaine-Prilocaine Cream [Emla Cream 2.5%/2.5%] 1 applic TOPICAL MOWEFR PRN PRN Reason: ACCESS PORT, DIALYSIS Simvastatin [Zocor] 20 mg PO HS Acetaminophen [Tylenol Arthritis] 650 mg PO Q8H PRN PRN Reason: Pain Furosemide [Lasix] 120 mg PO BID Apixaban [Eliquis] 2.5 mg PO BID Albuterol Inhaler [Ventolin Hfa Inhaler] 2 puff INHALATION Q6H PRN PRN Reason: Shortness Of Breath Pantoprazole [Protonix] 40 mg PO DAILY Discharge Medication List Calcium Acetate [PhosLo] 2,001 mg PO AC-BID 06/18/14 [History] Insulin Detemir (Levemir) [Levemir] 50 unit SQ PC-SUPPER 06/18/14 [History] Midodrine [ProAmatine] 5 mg PO MOWEFR PRN 06/26/14 [History] Acetaminophen [Tylenol Arthritis] 650 mg PO Q8H PRN 10/05/19 [History] Albuterol Inhaler [Ventolin Hfa Inhaler] 2 puff INHALATION Q6H PRN 10/05/19 [History] Apixaban [Eliquis] 2.5 mg PO BID 10/05/19 [History] Furosemide [Lasix] 120 mg PO BID 10/05/19 [History] Lidocaine-Prilocaine Cream [Emla Cream 2.5%/2.5%] 1 applic TOPICAL MOWEFR PRN 10/05/19 [History] Pantoprazole [Protonix] 40 mg PO DAILY 10/05/19 [History] Simvastatin [Zocor] 20 mg PO HS 10/05/19 [History] Follow up Appointment(s)/Referral(s): None,Stated [REFERRING] - 1-2 days Discharge Disposition: - Preliminary Cause of Preliminary Cause of : Septic shock from possible wound infection leading to cardiopulmonary arres
--- NOTE | 2019-10-10 10:02 | CDI ---
Documentation Clarification Form Date: 10/10/2019 10:48:36 AM From: Dottie Carmona Phone: If you have a question about this query, please contact Heena Obrien, Major Gifts Officer at [phone] between 8am and 5pm. Admit Date: 10/05/2019 12:51:00 AM Patient Name: Jeffery Velasquez Visit Number: [id number] Discharge Date: 10/06/2019 09:17:00 PM ATTENTION: The Clinical Documentation Specialists (CDI) and [facility] Coding Staff appreciate your assistance in clarifying documentation. Please respond to the clarification below the line at the bottom and electronically sign. The CDI & [facility] Coding staff will review the response and follow-up if needed. Please note: Queries are made part of the Legal Health Record. If you have any questions, please contact the author of this message via ITS. Dr. Joe Freeman CHF is documented in the PN's and patient with documented history of CHF. Patient has fluid overload, pleural effusion, pulmonary edema, CXR showing CHF History/Risk Factors: cardiac arrest, CHF, ESRD, elevated troponins, HTN, ARF on vent Clinical Indicators: VS/Pulse OX: 73 bpm, 198/85, on vent BNP: Echocardiogram Results: Chest X Ray:vascular congestion, CHF Treatment: Patient on pressors In your professional opinion, can you please clarify the acuity and type of CHF if known? Systolic Heart Failure: Acute Chronic Acute on Chronic Diastolic Heart Failure: Acute Chronic Acute on Chronic Systolic & Diastolic Heart Failure: Acute Chronic Acute on Chronic Heart Failure Unable to Determine Other, please specify Patient's volume overload is not secondary to heart failure but secondary to end-stage renal disease MTDD
--- NOTE | 2019-10-15 05:29 | CDI ---
Documentation Clarification Form Date: 10/12/2019 06:07:00 AM From: Dottie Carmona Phone: If you have a question about this query, please contact Heena Obrien Coding Machine Operator at [phone] between 8am and 5pm Admit Date: 10/05/2019 12:51:00 AM Patient Name: Jeffery Velasquez Visit Number: [id number] Discharge Date: 10/06/2019 09:17:00 PM ATTENTION: The Clinical Documentation Specialists (CDI) and [facility] Coding Staff appreciate your assistance in clarifying documentation. Please respond to the clarification below the line at the bottom and electronically sign. The CDI & [facility] Coding staff will review the response and follow-up if needed. Please note: Queries are made part of the Legal Health Record. If you have any questions, please contact the author of this message via ITS. Dr. Joe Freeman Myocardial infarction is documented in Dr. Hsu's PN on 10/[address] "Sus[address] acute [address] elevation PR". Documentation not carried to [facility]. Please clarify if patient had an STEMI or was this ruled out. Patient History/Risk Factors: cardiac arrest, septic shock, HTN heart/kidney, PVOD Clinical Indicators: Troponin: .037 EKG Results:A-Fib ST & T abnormality, Consider lateral ischemia or digitalis effect, Prolonged QT Treatment: Patient on vent and pressors for shock Consult:Cardiology minimally elevated troponin despite long downtime In order to capture the severity of condition and necessary documentation specificity, please clarify if patient had an PR or was this ruled out.: Type of Infarction: STEMI NSTEMI PR ruled out Unable to determine Other Condition, please specify Inferior wall Lateral wall Posterior wall Septal wall Other, please specify Unable to determine I cannot speak for pulmonology assessment my assessment as per my documentation MTDD
--- NOTE | 2019-10-31 05:54 | CDI ---
Documentation Clarification Form Date: 10/12/2019 06:07:00 AM From: Dottie Carmona Phone: To: Dottie Carmona If you have a question about this query, please contact Heena Obrien Career Advisor at [phone] between 8am and 5pm. Admit Date: 10/05/2019 12:51:00 AM Patient Name: Jeffery Velasquez Visit Number: [id number] Discharge Date: 10/06/2019 09:17:00 PM TTENTION: The Clinical Documentation Specialists (CDI) and [facility] Coding Staff appreciate your assistance in clarifying documentation. Please respond to the clarification below the line at the bottom and electronically sign. The CDI & [facility] Coding staff will review the response and follow-up if needed. Please note: Queries are made part of the Legal Health Record. If you have any questions, please contact the author of this message via ITS. Dr. Sofi Hsu Myocardial infarction is documented in your PN on 10/05 "Suspect acute ST elevation MN". Documentation not carried to [facility]. Please clarify if patient had an STEMI or was this ruled out. Patient History/Risk Factors: cardiac arrest, septic shock, HTN heart/kidney, PVOD Clinical Indicators: Troponin: .037 EKG Results:A-Fib ST & T abnormality, Consider lateral ischemia or digitalis effect, Prolonged QT Treatment: Patient on vent and pressors for shock Consult:Cardiology minimally elevated troponin despite long downtime In order to capture the severity of condition and necessary documentation specificity, please clarify if patient had an MN or was this ruled out.: Type of Infarction: STEMI NSTEMI MN ruled out Unable to determine Other Condition, please specify Inferior wall Lateral wall Posterior wall Septal wall Other, please specify Unable to determine __ MTDD
== END 2019-10-06 21:17 | disposition expired | DRG 871 ==
LOC: EC 23:19 → 2SICU 10-05 00:51 → MERGE 10-05 00:51
PROVIDERS: ADMIT Internal Medicine; ATTEND Internal Medicine
PROC: 5A1945Z Respiratory Ventilation, 24-96 Consecutive Hours (ICD-10-PCS; principal; 2019-10-05)
PROC: 3E033XZ Introduction of Vasopressor into Peripheral Vein, Percutaneous Approach (ICD-10-PCS; 2019-10-05)
PROC: 0BH17EZ Insertion of Endotracheal Airway into Trachea, Via Natural or Artificial Opening (ICD-10-PCS; 2019-10-05)
PROC: 4A133J1 Monitoring of Arterial Pulse, Peripheral, Percutaneous Approach (ICD-10-PCS; 2019-10-05)
PROC: 03HY32Z Insertion of Monitoring Device into Upper Artery, Percutaneous Approach (ICD-10-PCS; 2019-10-05)
PROC: 4A133B1 Monitoring of Arterial Pressure, Peripheral, Percutaneous Approach (ICD-10-PCS; 2019-10-05)
PROC: 5A1D70Z Performance of Urinary Filtration, Intermittent, Less than 6 Hours Per Day (ICD-10-PCS; 2019-10-05)
PROC: 02HV33Z Insertion of Infusion Device into Superior Vena Cava, Percutaneous Approach (ICD-10-PCS; 2019-10-05)
DX: A41.50 Gram-negative sepsis, unspecified (principal); R65.21 Severe sepsis with septic shock; J96.02 Acute respiratory failure with hypercapnia; J96.01 Acute respiratory failure with hypoxia; J69.0 Pneumonitis due to inhalation of food and vomit; N18.6 End stage renal disease; G93.6 Cerebral edema; R40.2312 Coma scale, best motor response, none, at arrival to emergency department; R40.2112 Coma scale, eyes open, never, at arrival to emergency department; R40.2212 Coma scale, best verbal response, none, at arrival to emergency department; Z68.42 Body mass index [BMI] 45.0-49.9, adult; E87.2 Acidosis; G93.1 Anoxic brain damage, not elsewhere classified; I13.2 Hypertensive heart and chronic kidney disease with heart failure and with stage 5 chronic kidney disease, or end stage renal disease; I48.19 Other persistent atrial fibrillation; L03.116 Cellulitis of left lower limb; E11.621 Type 2 diabetes mellitus with foot ulcer; Z20.828 Contact with and (suspected) exposure to other viral communicable diseases; E11.65 Type 2 diabetes mellitus with hyperglycemia; I50.9 Heart failure, unspecified; Z79.4 Long term (current) use of insulin; E11.22 Type 2 diabetes mellitus with diabetic chronic kidney disease; E11.42 Type 2 diabetes mellitus with diabetic polyneuropathy; I46.9 Cardiac arrest, cause unspecified; L97.529 Non-pressure chronic ulcer of other part of left foot with unspecified severity; Z66 Do not resuscitate; Z51.5 Encounter for palliative care; E11.51 Type 2 diabetes mellitus with diabetic peripheral angiopathy without gangrene; E87.70 Fluid overload, unspecified; E11.628 Type 2 diabetes mellitus with other skin complications; E66.01 Morbid (severe) obesity due to excess calories; E78.5 Hyperlipidemia, unspecified; E87.5 Hyperkalemia; R79.89 Other specified abnormal findings of blood chemistry; I44.0 Atrioventricular block, first degree; M89.8X9 Other specified disorders of bone, unspecified site; Z79.01 Long term (current) use of anticoagulants; Z79.899 Other long term (current) drug therapy; Z82.49 Family history of ischemic heart disease and other diseases of the circulatory system; Z83.3 Family history of diabetes mellitus; Z89.511 Acquired absence of right leg below knee; Z99.2 Dependence on renal dialysis
CPT/HCPCS: 31500; 36415; 36556; 36600; 70450; 71045; 80048; 80053; 82272; 82805; 83036; 83605; 83735; 84484; 85025; 85610; 85730; 87040; 87070; 87075; 87077; 87186; 87205; 87635; 90935; 93005; 93306; 94002; 95819; 96365; 96366; 96368; 96376; 99291